=== PATIENT | male | born 1940 | race Caucasian/White ===

== ENCOUNTER 2020-04-20 22:12 | Inpatient (IN) | payer MEDICARE, SELFPAY ==
[~2020-04-20] VITALS: Ht 162.6 cm; Wt 45.8 kg
[2020-04-20 22:12] VITALS: BP 97/69
--- NOTE | 2020-04-20 22:12 | NUR ---
PT PRADIP ALS. TAKEN TO BED 3
[2020-04-20] MEDS ORDERED: NACL 0.9% 500 ML IV ONE (22:25)
--- NOTE | 2020-04-20 22:30 | NUR ---
79 Y/O MALE BIBA FROM HOME C/O ALOC - PER FIRE PT HAS BEEN IN & OUT OF HOSPITAL FOR PAST WEEK. PT ABLE TO FOLLOW SIMPLE COMMANDS. PT O2 SAT'S IN 80'S ON ROOM AIR. PT PLACED ON BIPAP. O2 98%. WILL CONTINUE TO MONITOR. PMH: AFIB, DM, HIGH CHOLESTEROL NKA
--- NOTE | 2020-04-20 23:00 | NUR ---
URINE, NOVEL AND NOE SWABS COLLECTED AND HANDED TO AGRICULTURAL INSPECTORFRACISCO.
--- NOTE | 2020-04-20 23:18 | NUR ---
Artemio english in EDM - 04/20/20 at 2318 by GALINAK ABG RESULTS PRESENTED TO ED DR AND FIO2 TITRATED TO 40% ON BIPAP 02/10 f16
--- NOTE | 2020-04-20 23:19 | NUR ---
ABG RESULTS PRESENTED TO ED DR AND FIO2 TITRATED TO 40% ON BIPAP 02/10 f16 PT PLACED ON BIPAP PER ED DR REQUEST
[2020-04-20 23:20] VITALS: BP 97/69
--- NOTE | 2020-04-20 23:20 | NUR ---
LAB AT BEDSIDE
[2020-04-20] MEDS ORDERED: AZITHROMYCIN 500 MG in DEXTROSE 5% 250 ML IV ONE (23:35)
[2020-04-20] MEDS ORDERED: DEXAMETHASONE 4 MG/ML VIAL IVP ONE (23:35)
[2020-04-20 23:37] LABS: BASOPHILS % (AUTO) 0.4 % (0.0-2.0); EOSINOPHILS % (AUTO) 0.2 % (0.0-4.0); HEMATOCRIT 38.1 % (36-52); HEMOGLOBIN 12.7 g/dL (12.0-18.0); LYMPHOCYTES # (AUTO) 0.3 K/uL (2.0-11.5); LYMPHOCYTES % (AUTO) 4.4 % (20.5-51.1); MEAN CORPUSCULAR HEMOGLOBIN 30 pg (27-31); MEAN CORPUSCULAR HGB CONC 33 g/dL (33-37); MEAN CORPUSCULAR VOLUME 91.4 fL (80-94); MONOCYTES # (AUTO) 0.4 K/uL (0.8-1.0); MONOCYTES % (AUTO) 5.4 % (1.7-9.3); NEUTROPHILS # (AUTO) 7.1 K/uL (1.8-7.7); NEUTROPHILS % (AUTO) 89.6 % (42.2-75.2); PLATELET COUNT (AUTO) 141 K/uL (140-450); RED BLOOD CELL COUNT(AUTO) 4.17 MIL/uL (4.20-6.10); RED CELL DISTRIBUTION WIDTH 16.2 % (11.6-13.7); WHITE BLOOD COUNT (AUTO) 7.9 K/uL (4.8-10.8)
[2020-04-20] MEDS ORDERED: cefTRIAXone 1,000 MG VIAL ONE (23:45)
[2020-04-20] MEDS ORDERED: AZITHROMYCIN 500 MG INJ VIAL IV ONE (23:45)
[2020-04-20 23:51] LABS: ALBUMIN 2.5 g/dL (3.4-5.0); ANION GAP 16.5 (8-16); ASPARTATE AMINOTRANSFERASE 161 U/L (15-37); CARBON DIOXIDE 23.8 mmol/L (21-32); CHLORIDE 107 mmol/L (98-107); CREATININE 2.5 mg/dL (0.6-1.3); GLUCOSE 158 mg/dL (74-106); POTASSIUM 4.3 mmol/L (3.5-5.1); SODIUM SERUM 143 mmol/L (136-145); TOTAL BILIRUBIN 0.6 mg/dL (0.0-1.0)
[2020-04-21 00:11] LABS: UREA NITROGEN, BLOOD 67 mg/dL (7-18)
[2020-04-21] MEDS ORDERED: NACL 0.9% 1,000 ML IV SCH ×2 (00:25→08:00)
[2020-04-21 00:26] LABS: CKMB RELATIVE INDEX 0.2 (0.0-2.5)
[2020-04-21 00:53] LABS: APPEARANCE,URINE CLOUDY (CLEAR); BILIRUBIN,URINE NEGATIVE (NEGATIVE); BLOOD, URINE 1+ (NEGATIVE); COLOR,URINE YELLOW (YELLOW); LEUKOCYTE ESTERASE ,URINE NEGATIVE (NEGATIVE); NITRITE, URINE NEGATIVE (NEGATIVE); PH,URINE 5.5 (5.0-9.0); UGLUCOSE NEGATIVE (NEGATIVE)
[2020-04-21 01:35] VITALS: BP 103/51
--- NOTE | 2020-04-21 01:40 | NUR ---
PER RT, PT PLACED ON NONREBREATHER 15L, PT O2 SATURATION AT 100%. WILL CONTINUE TO MONITOR.
--- NOTE | 2020-04-21 01:41 | NUR ---
W/ DR CONSENT PT REMOVED FROM BIPAP AND PLACED ON NRB WILL CONTINUE TO MONITOR PT
[2020-04-21 02:23] LABS: RBC,URINE 0-5 /HPF (0-5); WBC,URINE 0-5 /HPF (0-5)
[2020-04-21 02:24] LABS: FINE GRANULAR CASTS,URINE 0-10 /LPF (None Seen)
--- NOTE | 2020-04-21 03:45 | NUR ---
PT HAS EYES CLOSED, ON NONREBREATHER 15L, PT O2 SATURATION AT 99%. WILL CONTINUE TO MONITOR.
--- NOTE | 2020-04-21 05:20 | NUR ---
PT HAS EYES CLOSED, ON NONREBREATHER 15L, PT O2 SATURATION AT 99%. WILL CONTINUE TO MONITOR.
--- NOTE | 2020-04-21 07:21 | NUR ---
REPORT GIVEN TO FRACISCO FONG FOR CONTINUITY OF CARE
--- NOTE | 2020-04-21 07:22 | NUR ---
Report received from HETAL Camejo metal furniture polisher for continuity of care.
--- NOTE | 2020-04-21 07:56 | NUR ---
BIBA from home with c/o rigors/SOB x 3 days, decreased activity per EMS. RA O2 sat in field was 80's, bipap applied initially. NKDA, PMH a-fib, DM2, HLD. A, A, O x 2, speach difficult to understand with O2 FM, cooperative. Resp even and unlabored, O2 @ 15 l/min NON-rebreather mask NRM, O2 sat 98-100% HOB elevated, VVS x HR, panel monitor with a-fib RVR 105-125 BPM. Moving all exts weakly, IV patent #[id number] left AC, saline locked. Awaiting TELE bed/room, will continue to monitor.
[2020-04-21] MEDS ORDERED: DEXTROSE 50% 50 ML SYR IVP PRN (08:00)
[2020-04-21] MEDS ORDERED: ALBUTEROL HFA MDI 90 MCG/ACTUATION 8 GM INH PRN (08:00)
[2020-04-21] MEDS ORDERED: DOCUSATE SODIUM 100 MG GELCAP PO PRN (08:00)
[2020-04-21] MEDS ORDERED: ACETAMINOPHEN 325 MG TAB PO PRN (08:00)
[2020-04-21] MEDS ORDERED: POTASSIUM CHLORIDE 10 MEQ TABER PO PRN (08:00)
[2020-04-21] MEDS ORDERED: HYDROcodone/APAP 7.5/325 MG 1 TAB PO PRN (08:00)
[2020-04-21] MEDS ORDERED: ONDANSETRON 4 MG/2 ML VIAL IM/IVP PRN (08:00)
[2020-04-21] MEDS: ZINC SULF 220 MG CAP PO SCH (10:48)
[2020-04-21] MEDS: AZITHROMYCIN 250 MG TAB PO SCH (10:50)
[2020-04-21] MEDS: ASCORBIC ACID 500 MG TAB PO SCH (10:52)
--- NOTE | 2020-04-21 11:28 | NUR ---
Brought patient regular diet tray for lunch, stated he wasn't hungry and did not want it. Tolerating water well
--- NOTE | 2020-04-21 12:07 | NUR ---
SOCIAL WORK NOTE: JUSTIN WAS UNABLE TO MEET PATIENT AT BEDSIDE DUE TO MEDICAL CONDITION. JUSTIN WAS UNABLE TO LEAVE VM DUE TO NO CONTACTS AVAILABLE. JUSTIN WILL FOLLOW UP. Addendum: 04/24/20 at 1403 by Aureliano Alvarez JUSTIN LEFT ADDITIONAL VM TO COMPLETE ASSESSMENT.
[2020-04-21 12:22] LABS: CHOL/HDL RATIO 4.5 (1-4.5); FREE T4 (FREE THYROXINE) 1.23 ng/dL (0.76-1.46); MAGNESIUM 2.2 mg/dL (1.8-2.4); PHOSPHORUS 3.2 mg/dL (2.5-4.9); THYROID STIMULATING HORMONE 0.83 uIU/mL (0.34-3.74)
[2020-04-21] MEDS: BLOOD GLUCOSE MONITORING 1 DEV DEV FS SCH ×3 (13:01→21:23)
--- NOTE | 2020-04-21 16:03 | NUR ---
Patient taking oxygen off, placed facem mask back on. O2 sat 88% w/o O2 Patient with O2 on, O2 sat 95%, reoriented and explained necessity of oxygen
[2020-04-21] MEDS: INSULIN LISPRO SLIDING SCALE 100 UNITS/ML VIAL SUBQ PRN (18:13)
--- NOTE | 2020-04-21 18:15 | NUR ---
Patient keeps taking O2 face mask off, O2 sat without O2 is 88% Reminded patint to wear mask, states he's NOT SOB. Patient given water to moisten his mouth
--- NOTE | 2020-04-21 19:37 | NUR ---
Detailed report given to HETAL Martínez security shift manager. Questions answered, orders and meds reviewed.
--- NOTE | 2020-04-21 19:37 | NUR ---
report received from jhonny hoffman. transfer of care at this time.
--- NOTE | 2020-04-21 21:00 | NUR ---
pt is awake and in stable condition. bed locked in lowest position, side rails x2. pt on school bus monitor and pulse ox.
[2020-04-21] MEDS ORDERED: cefTRIAXone 1,000 MG VIAL ONE (21:02)
--- NOTE | 2020-04-21 22:20 | NUR ---
bed sheets and pt's diaper changed, only urine noted. pt given a new warm blanket and provided with water per request. all pt's needs are met at this time. bed locked in lowest position, side rails x2. pt on hall monitor and pulse ox.
--- NOTE | 2020-04-22 | NUR ---
PT IN STABLE CONDITION. EQUAL RISE AND FALL OF CHEST WALL. ALL PT'S NEEDS MET AT THIS TIME. BED LOCKED IN LOWEST POSITION, SIDE RAILS X2. PT ON SANDBLASTER PAINT SPRAYER AND PULSE OX.
--- NOTE | 2020-04-22 02:15 | NUR ---
PT IS IN STABLE CONDITION. DR. LUNA MADE AWARE THAT PT'S HR IS 140 DUE TO AFIB, WAITING FOR RESPONSE. BED LOCKED IN LOWEST POSITION, SIDE RAILS X2. PT CONTINUES TO REMOVE NONREBREATHER, INSTRUCTED TO LEAVE IT ON.
--- NOTE | 2020-04-22 02:44 | NUR ---
CALLED , NO ANSWER. WAITING FOR RESPONSE.
--- NOTE | 2020-04-22 03:45 | NUR ---
PT IS IN STABLE POSITION, PT GAVE A THUMBS UP WHEN ASKED HOW HE WAS FEELING. NONREBREATHER PLACED BACK ON, PT REMOVES CONSTANTLY. EQUAL RISE AND FALL OF CHEST WALL. SIDE RAILS X2, BED LOCKED IN LOWEST POSITION. ALL PT'S NEEDS MET AT THIS TIME.
--- NOTE | 2020-04-22 04:31 | NUR ---
CALLED , NO ANSWER.
--- NOTE | 2020-04-22 04:35 | NUR ---
CALLED , NO ANSWER. PT CONTINUES IN STABLE CONDITION.
--- NOTE | 2020-04-22 05:11 | NUR ---
CALLED DR. LUNA, NO ANSWER.
--- NOTE | 2020-04-22 05:16 | NUR ---
RECEIVED CALL FROM DR. DAVENPORT, REPORTED AFIB AT 140 AND O2 SAT AT 88 ON 15L NONREBREATHER, PT IN STABLE CONDITION. ORDERED DILTIAZEM 60 MG P.O DAILY X1DAY AND TO PUT IN A CONSULT WITH PAPER MILL SUPERVISOR. ORDERS CARRIED OUT.
[2020-04-22] MEDS ORDERED: DILTIAZEM 60 MG TAB PO SCH (05:25)
[2020-04-22] MEDS: METOPROLOL 25 MG TAB PO SCH ×2 (06:16→20:52)
--- NOTE | 2020-04-22 06:23 | NUR ---
PT IS AWAKE AND ALERT, CONTINUES TO REMOVE NONREBREATHER. PLACED BACK ON. PT IS IN STABLE CONDITION, SIDE RAILS X2, BED LOCKED IN LOWEST POSITION. ALL PT'S NEEDS MET AT THIS TIME.
--- NOTE | 2020-04-22 07:27 | NUR ---
report given to jhonny lockhart. transfer of care at this time.
[2020-04-22 07:46] LABS: BASOPHILS % (AUTO) 0.1 % (0.0-2.0); HEMATOCRIT 37.4 % (36-52); HEMOGLOBIN 12.8 g/dL (12.0-18.0); LYMPHOCYTES # (AUTO) 0.2 K/uL (2.0-11.5); LYMPHOCYTES % (AUTO) 1.6 % (20.5-51.1); MEAN CORPUSCULAR HEMOGLOBIN 33 pg (27-31); MEAN CORPUSCULAR HGB CONC 34 g/dL (33-37); MEAN CORPUSCULAR VOLUME 95.2 fL (80-94); MONOCYTES # (AUTO) 0.5 K/uL (0.8-1.0); MONOCYTES % (AUTO) 4.6 % (1.7-9.3); NEUTROPHILS # (AUTO) 10.5 K/uL (1.8-7.7); NEUTROPHILS % (AUTO) 93.7 % (42.2-75.2); PLATELET COUNT (AUTO) 172 K/uL (140-450); RED BLOOD CELL COUNT(AUTO) 3.94 MIL/uL (4.20-6.10); WHITE BLOOD COUNT (AUTO) 11.2 K/uL (4.8-10.8)
--- NOTE | 2020-04-22 07:48 | NUR ---
PT ALERT AND AWAKE, BREATHING EVEN AND UNLABORED ON NRB @15L, SPO2 93%. PT HAD MASK OFF SATURATING 85%, UNDERSTANDS TO KEEP MASK ON
--- NOTE | 2020-04-22 08:01 | NUR ---
DR LUNA MADE AWARE PT HR 144, BP 138/63 STILL AFTER LOPRESSOR GIVEN AT 0615
[2020-04-22] MEDS: BLOOD GLUCOSE MONITORING 1 DEV DEV FS SCH ×4 (08:09→22:49)
[2020-04-22 08:11] LABS: T4 (THYROXINE) 5.7 ug/dL (4.5-12.0)
--- NOTE | 2020-04-22 08:14 | NUR ---
PATIENT HAS BEEN SCREENED AND CATEGORIZED HIGH NUTRITION RISK. PATIENT WILL BE SEEN WITHIN 1-2 DAYS OF ADMISSION. 04/21/20 - 04/23/20 TAMMI DENIS MBA, RD
[2020-04-22] MEDS ORDERED: METOPROLOL 5 MG/5 ML VIAL IV SCH ×3 (09:00→11:30)
[2020-04-22] MEDS ORDERED: CRUSHER, PILL MC ONE (09:02)
[2020-04-22] MEDS: ASCORBIC ACID 500 MG TAB PO SCH (09:33)
[2020-04-22] MEDS: AZITHROMYCIN 250 MG TAB PO SCH (09:33)
[2020-04-22] MEDS: ZINC SULF 220 MG CAP PO SCH (09:34)
[2020-04-22 09:42] LABS: ALBUMIN 2.5 g/dL (3.4-5.0); ANION GAP 20.8 (8-16); ASPARTATE AMINOTRANSFERASE 86 U/L (15-37); CARBON DIOXIDE 19.8 mmol/L (21-32); CHLORIDE 109 mmol/L (98-107); CREATININE 2.2 mg/dL (0.6-1.3); GLUCOSE 157 mg/dL (74-106); MAGNESIUM 2.4 mg/dL (1.8-2.4); PHOSPHORUS 4.1 mg/dL (2.5-4.9); POTASSIUM 4.6 mmol/L (3.5-5.1); SODIUM SERUM 145 mmol/L (136-145); TOTAL BILIRUBIN 0.5 mg/dL (0.0-1.0)
--- NOTE | 2020-04-22 09:46 | NUR ---
PT HR 145 AFTER MEDICATION LOPRESSOR, DR LUNA MADE AWARE
[2020-04-22 10:40] LABS: UREA NITROGEN, BLOOD 80 mg/dL (7-18)
[2020-04-22 10:43] LABS: LACTATE DEHYDROGENASE 647 U/L (85-227)
--- NOTE | 2020-04-22 10:48 | NUR ---
PT HR 146 AFTER 2ND DOSE OF MEDICATION LOPRESSOR 2.5MG, DR LUNA MADE AWARE
--- NOTE | 2020-04-22 12:21 | NUR ---
TALKED TO DARIAN FROM NUCLEAR MED, STATE THEY WILL FRENCH POLISHER PATIENT AROUND 4PM
--- NOTE | 2020-04-22 13:28 | NUR ---
SPOKE WITH SOSA, SON, PROVIDED WITH UPDATES. ALL QUESTIONS ANSWERED.
[2020-04-22] MEDS ORDERED: NACL 0.9% 500 ML IV SCH (14:10)
--- NOTE | 2020-04-22 14:15 | NUR ---
1 FLUID FLUID BOLUS STARTED PER DR LUNA VERBAL ORDER
--- NOTE | 2020-04-22 14:19 | NUR ---
ATTEMPTED TO CALL BLOOD BANK FOR 1ST TIME REGARDING ORDERED BLOOD, WILL WAIT FOR CALL BACK.
--- NOTE | 2020-04-22 15:24 | NUR ---
HR REMAINS 146, BP 154/104 AFTER 1L BOLUS, DR LUNA MADE AWARE
--- NOTE | 2020-04-22 15:25 | NUR ---
BLOOD BANK STATES THEY HAVE TO THAW [facility]FP
--- NOTE | 2020-04-22 15:48 | NUR ---
DC PLANNIN YRS OLD MALE PATIENT WAS ADMITTED FROM HOME WITH A DX OF ACUTE RESP FAILURE SECONDARY TO BILATERAL PNA. PT HAS A HX OF A-FIB, DM AND HLD. CXR SHOWED PNEUMONIA ,CONSOLIDATION. RAPID COVID TEST POSITIVE PCR IS PENDING. STARTED COVID PROTOCOL REMDESEVIR , DECADRON AND IV ABX ROCEPHIN AND AZITHROMYCIN . CONSULTED WITH PULMO AND ID. PT IS CONFUSED UNABLE TO FOLLOW CONVERSATION. CALLED [facility] SPOKE WITH MARIAN FARRIS ,PROVIDED PT HOME NUMBER AND FAMILY MEMBER INFORMATION . UPDATED PT'S FACE SHEET AND NOTIFIED DR LUNA. PER MARIAN FROM [facility] THEY ARE FULL IN ALL [facility] AND NOT TRANSFERRING ANY OF THEIR PATIENT FOR 2 WEEKS AND WILL APPROVE 2 DAYS AT A TIME. CM TO FOLLOW Addendum: 04/25/20 at 1544 by Soledad De Santiago CM PER DR. VILLANUEVA, WILL TRANSITIONED IV CARDIZEM TO PO AND DOWNGRADE TO TELE. HE ALSO STATED PATIENT WILL BE NEEDING HOME O2. ORDER TRANSCRIBED AND FAXED TO [facility]. Addendum: 04/27/20 at 1058 by Mindy Peters RN DC PLANNING: FAXED THE CLINICALS TO [facility] [phone] AND RECEIVED A CONFIRMATION. CM TO FOLLOW Addendum: 04/28/20 at 1229 by Soledad De Santiago CM STILL ON O2 AT 2LPM/NC, O2 SAT 93%. ON DECADRON. SEEN BY NEPHRO - NA REMAINS ELEVATED, CHANGE IVF TO D5W. CR TRENDING DOWN. PER MANUEL - CONTINUE SUPPLEMENTAL O2, WEAN OFF, RECOMMEND GENTLE IV HYDRATION. Addendum: 04/28/20 at 1253 by Soledad De Santiago CM REACHED OUT TO [facility], ABLE TO SPEAK TO YAYO. SHE STATED THEIR IS NO ASSIGNED CM ON THIS PATIENT DUE TO THEY ARE PRIORITIZING DISCHARGES. SHE STATED THAT STAY HAVE BEEN AUTHORIZED UNTIL DC. SHE ALSO CONFIRMED THAT THEY RECEIVED THE ORDER FOR HOME O2. SHE STATED THEY DO NOT ARRANGE O2 UNTIL THEY HAVE THE DC ORDER. INFORMED HER THAT THE PATIENT'S HR WENT UP TO 150'S. SHE STATED SHE WILL REACH OUT TO THEIR DC TEAM FOR THE HOME O2. PROVIDED HER OF MY DIRECT NUMBER TO FOLLOW UP.
[2020-04-22] MEDS ORDERED: DIGOXIN 0.25 MG/ML AMP IV SCH (16:00)
--- NOTE | 2020-04-22 16:53 | NUR ---
PER NUCLEAR MEDICINE COULD NOT TAKE PATIENT, WOULD HAVE TO OUTSOURCE SCAN. STATES WILL GIVE ETA FOR WHEN THEY WILL PERFORM FOR PT. DR LUNA AWARE.
--- NOTE | 2020-04-22 17:01 | NUR ---
DR LUNA MADE AWARE PT HR 145, BP 154/104 AFTER 0.5MG DIGOXIN GIVEN
--- NOTE | 2020-04-22 17:25 | NUR ---
VERBAL CONSENT GIVEN BY DR LUNA FOR TRANSFUSION OF COVID 19 CONVALESCENT PLASMA
--- NOTE | 2020-04-22 17:50 | NUR ---
TRANSFUSION OF COVID PLASMA START AT THIS TIME
--- NOTE | 2020-04-22 18:35 | NUR ---
REPORT GIVEN TO AMOL FONG AT THIS TIME
--- NOTE | 2020-04-22 19:00 | NUR ---
TRANSFUSION TO BE CONTINUED IN TELE UNIT, PRIMARY NURSE AWARE
--- NOTE | 2020-04-22 19:00 | NUR ---
Patient will be admitted to care of Dr Chamberlain. Admited to tele. Will go to room 116. Belongings list completed. Report to Mindy FONG.
--- NOTE | 2020-04-22 19:15 | NUR ---
RECEIVED REPORT FROM AMOL FONG. PT IS AAOX1 SELF. RESPIRATIONS ARE EQUAL AND LABORED ON 15L NRB. LUNG SOUNDS ARE DIMINISHED AT BASE. RR 24 SAT 90%. PER REPORT PLASMA TRANSFUSING. WALKED IN PT PULLED IV OUT VERY ALTERED. WILL ATTEMPT TO REINSERT ANOTHER. SKIN IS INTACT. SACRAL REDNESS. PT IS FROM HOME. C/C SOB. DX COVID ON DROPLET ISOLATION. HX A-FIB, HLD, DM. PT REMAINS UNCONTR A-FIB HR 140S PER REPORT IS AWARE WILL CONTINUE ON METOPROL. POC DISCUSSED WITH PT. SAFETY MEASURE ARE IN PLACE.
--- NOTE | 2020-04-22 19:20 | NUR ---
NEW IV ON LAC 22G STARTED ON FIRST ATTEMPT PT TOLERATED WELL. PLASMA NOW RESUME.
--- NOTE | 2020-04-22 19:40 | NUR ---
PLASMA COMPLETE NO S/S OF ADVERSE REACTION NOTED. WILL CONTINUE TO MONITOR FREQUENTLY. PT KEEPS REMOVING NRB DE SAT TO HIGH 70S ON RA. REORIENT PT BUT KEEPS ATTEMPTING TO REMOVE LINES. WILL OBTAIN ORDER FOR RESTRAINTS.
[2020-04-22 20:00] VITALS: BP 176/97
--- NOTE | 2020-04-22 21:13 | NUR ---
B/P ELEVATED 176/94 HR 141 KTAHY MEDICATION GIVEN. KATHY LOPRESSOR ADMINISTERED FOR B/P. IS AWARE PT IS A-FLUTTER HR BEEN 140S SINCE ER. PT WAS CLEANED AND REPOSITION. SAFETY MEASURES ARE IN PLACE. CALL LIGHT IS WITHIN REACH. Addendum: 04/23/20 at 0109 by Caridad Yoder RN ATTEMPT TO CALL JESUS AND SON SOSA UNABLE TO GET IN CONTACT WILL ATTEMPT AGAIN IN AM.
--- NOTE | 2020-04-22 22:40 | NUR ---
ROUNDS MADE. FOUND PT OFF NRB. PLACED NRB ON AGAIN AND SECURED RESTRAINTS. REORIENTED PT TO HOSPITAL AND STAFF. SAFETY MEASURES ARE IN PLACE.
[2020-04-23] VITALS (9 sets, daily range): BP systolic 102–149; BP diastolic 57–107
--- NOTE | 2020-04-23 | NUR ---
VITAL SIGNS ARE STABLE. PT REMAINS A-FLUTTER HR 146. PT DENIES ANY CHEST PAIN OR DISCOMFORT. SAFETY MEASURES ARE IN PLACE. WILL CONTINUE TO MONITOR.
--- NOTE | 2020-04-23 02:20 | NUR ---
MADE ROUNDS. PT IS SLEEPING COMFORTABLY IN BED WITH EYES CLOSED. CHEST RISE AND FALL NOTED. ALL SAFETY MEASURES ARE IN PLACE. WILL CONTINUE TO MONITOR.
[2020-04-23] MEDS ORDERED: DIGOXIN 0.125 MG TAB ONE (06:19)
[2020-04-23] MEDS: DIGOXIN 0.125 MG TAB PO SCH (06:21)
--- NOTE | 2020-04-23 06:21 | NUR ---
ADMINISTERED DIGOXIN EARLY PER MD FOR 149/107 HR 141. BG 109 WILL CONTINUE TO MONITOR.
[2020-04-23] MEDS: BLOOD GLUCOSE MONITORING 1 DEV DEV FS SCH ×4 (06:26→20:46)
--- NOTE | 2020-04-23 07:05 | NUR ---
REC'D REPORT FROM DISTRICT SCOUT EXECUTIVE NURSE. PT STABLE. ON 15L NRB. BED LOWEST POSITION. CALL LIGHT WITHIN REACH.
--- NOTE | 2020-04-23 07:27 | NUR ---
GAVE BEDSIDE REPORT TO DAY RN. PT ENDORSED IN STABLE CONDITION.
[2020-04-23] MEDS: METOPROLOL 25 MG TAB PO SCH ×2 (08:54→21:00)
[2020-04-23] MEDS: ASCORBIC ACID 500 MG TAB PO SCH (08:54)
[2020-04-23] MEDS: ZINC SULF 220 MG CAP PO SCH (08:54)
[2020-04-23 09:04] LABS: ANION GAP 15.9 (8-16); CARBON DIOXIDE 23.6 mmol/L (21-32); CHLORIDE 112 mmol/L (98-107); CREATININE 1.5 mg/dL (0.6-1.3); GLUCOSE 121 mg/dL (74-106); POTASSIUM 4.5 mmol/L (3.5-5.1); SODIUM SERUM 147 mmol/L (136-145); UREA NITROGEN, BLOOD 57 mg/dL (7-18)
[2020-04-23 09:24] LABS: MAGNESIUM 2.8 mg/dL (1.8-2.4); PHOSPHORUS 3.3 mg/dL (2.5-4.9)
--- NOTE | 2020-04-23 09:29 | NUR ---
ATTEMPTED TO GIVE MEDICATIONS PO, PT HAD LARGE BOLUS OF UNDIGESTED FOOD IN MOUTH, UNABLE TO SWALLOW THE PILLS OR WATER. SUCTIONED TO REMOVED FOOD FROM MOUTH. REC'D CALL FROM AIRCRAFT PAINTER WHILE IN ROOM INFORMED HER OF SITUATION AND REQUESTED TO ORDER A SWALLOW STUDY.
--- NOTE | 2020-04-23 09:55 | NUR ---
PER DR. FISHER, ADMINISTER 10MG OF DILTIAZEM IV ONE TIME FOR SVT. ENTERED ORDER AND SYSTEM, PER ADMINISTER AURA, MEDICATION WAS OVERRIDEN IN SYSTEM TO ADMINISTER.
[2020-04-23] MEDS ORDERED: DILTIAZEM 25 MG/5 ML VIAL IVP ONE ×2 (10:10→10:16)
[2020-04-23] MEDS ORDERED: DILTIAZEM 25 MG/5 ML VIAL IVP SCH ×2 (10:30→15:00)
--- NOTE | 2020-04-23 10:30 | NUR ---
SPOKE TO GUEST SERVICE HOST RECOMMENDED TO ORDER SWALLOW EVALUATION
[2020-04-23 11:36] LABS: BASOPHILS % (AUTO) 0.4 % (0.0-2.0); EOSINOPHILS % (AUTO) 0.1 % (0.0-4.0); HEMATOCRIT 41.7 % (36-52); HEMOGLOBIN 14.1 g/dL (12.0-18.0); LYMPHOCYTES # (AUTO) 0.3 K/uL (2.0-11.5); LYMPHOCYTES % (AUTO) 2.5 % (20.5-51.1); MEAN CORPUSCULAR HEMOGLOBIN 32 pg (27-31); MEAN CORPUSCULAR HGB CONC 34 g/dL (33-37); MONOCYTES # (AUTO) 0.7 K/uL (0.8-1.0); MONOCYTES % (AUTO) 5.9 % (1.7-9.3); NEUTROPHILS # (AUTO) 10.3 K/uL (1.8-7.7); NEUTROPHILS % (AUTO) 91.1 % (42.2-75.2); PLATELET COUNT (AUTO) 208 K/uL (140-450); RED BLOOD CELL COUNT(AUTO) 4.35 MIL/uL (4.20-6.10); RED CELL DISTRIBUTION WIDTH 16.6 % (11.6-13.7); WHITE BLOOD COUNT (AUTO) 11.3 K/uL (4.8-10.8)
[2020-04-23] MEDS: INSULIN LISPRO SLIDING SCALE 100 UNITS/ML VIAL SUBQ PRN ×2 (13:15→13:20)
--- NOTE | 2020-04-23 13:41 | NUR ---
04/23/20 RD INITIAL ASSESSMENT COMPLETED PLEASE REFER TO NUTRITION ASSESSMENT UNDER CARE ACTIVITY FOR ESTIMATED NUTRITIONAL NEEDS. 1. RECOMMEND NPO 2. RECOMMEND A SWALLOW EVALUATION 3. IF PT PASSES SWALLOW EVAL, CONSIDER GLUCERNA TID 4. IF PT FAILS SWALLOW EVAL, CONSIDER TUBE FEEDING WITH GLUCERNA 1.2 @ 60 ML/HR . START AT 10 ML/HR AND INCREASE BY 20 ML/HR Q4H. -USING GRAVITY TUBE FEEDING THIS WILL BE 14 DROPS PER MINUTE. -THIS WILL PROVIDE 1728 KCAL AND 86 GM OF PROTEIN. 5. RECOMMEND FREE WATER FLUSH OF [address] TO FOLLOW-UP 2-3 DAYS,HIGH RISK REBEL BARNETT RD
--- NOTE | 2020-04-23 14:30 | NUR ---
PT CONTINUES WITH HR ABOVE 15. TEXTED DR. FISHER TO INFORM
--- NOTE | 2020-04-23 14:48 | NUR ---
ADMINISTERED 10MG DILTIAZEM IVP PER DR. FISHER ORDER FOR HR ABOVE 150, PT TOLERATED PROCEDURE WELL
--- NOTE | 2020-04-23 16:00 | NUR ---
PT RESTING IN BED, LOWEST POSITION
--- NOTE | 2020-04-23 18:00 | NUR ---
SENT MESSAGE TO DR. FISHER NOTIFYING HIM PT CONTINUES TO HAVE HR ABOVE 150 DESPITE PHARMACOLOGICAL INTERVENTION.
--- NOTE | 2020-04-23 19:30 | NUR ---
ENDORSED PT TO NIGHT NURSE, PT STABLE WITH HR ABOVE 150
--- NOTE | 2020-04-23 19:31 | NUR ---
RECEIVED REPORT FROM ESTRELLITA FONG. PT IS AAOX1 SELF. RESPIRATIONS ARE EQUAL AND LABORED ON RA. LUNG SOUNDS ARE DIMINISHED AT BASE. RR 21 SAT 93%. PT ON DROPLET ISOLATION FOR COVID +. PT RECEIVED ONE UNIT ON PLASMA ON 04/22. IV ON RAC 22G SL. SKIN IS INTACT. SACRAL REDNESS WITH OPTIFOAM IN PLACE. PT IS FROM HOME. C/C SOB. HX A-FIB, HLD, DM. PT REMAINS UNCONTR A-FLUTTER HR 140-150S PER REPORT . PT RECEIVED CARDIZEM 10MG IVP X2 HAS NOT CONVERTED WAITING FOR CALL BACK FROM . POC DISCUSSED WITH PT PT UNABLE TO COMPREHEND. SAFETY MEASURE ARE IN PLACE. Addendum: 04/23/20 at 2126 by Caridad Yoder RN PT ON JAMES SOFT WRIST RESTRAINTS D/T REMOVING LINES. NO S/S OF SKIN BREAK DOWN.
--- NOTE | 2020-04-23 19:35 | NUR ---
DR FISHER NEW ORDER TO TX TO ICU TO START CARDIZEM DRIP. NEW ORDERS INPUT WILL CALL SUPERVISOR WRAPPING ROOM AND ICU TO ARRANGE TRANSFER.
--- NOTE | 2020-04-23 20:53 | NUR ---
PT TRANSFERRED TO ROOM 127A. PT TOLERATED WELL NO S/S OF DISTRESS. GAVE BEDSIDE REPORT TO CHARGE JEANETTE. PT ENDORSED IN STABLE CONDITION. PT REMAINS A-FLUTTER HR 140-150 BPM. CALL LIGHT IS WITHIN REACH.
--- NOTE | 2020-04-23 21:07 | NUR ---
PATIENT UNABLE TO SWALLOW HELD LOPRESSOR. ADMINISTERED SUBQ HEPARIN. MED EDUCATION GIVEN. ALL NEEDS MET. CALL LIGHT IS WITHIN REACH.
--- NOTE | 2020-04-23 21:37 | NUR ---
GAVE BEDSIDE REPORT TO JEANETTE FONG. PT ENDORSED IN STABLE CONDITION.
--- NOTE | 2020-04-23 22:15 | NUR ---
RECEIVED PT FOR CONTINUITY OF CARE. PT LAYING IN BED COMFORTABLY. PT REMAINS AAOX1. RESPIRATIONS ARE EQUAL AND UNLABORED ON ROOM AIR. LUNG SOUNDS ARE CLEAR. IV ON RAC 22G. POC DISCUSSED WITH PT. PT UNABLE TO VERBALIZE UNDERSTANDING. SAFETY MEASURES ARE IN PLACE. CALL LIGHT IS WITHIN REACH. WILL CONTINUE TO MONITOR.
[2020-04-23] MEDS ORDERED: DILTIAZEM 125 MG/25 ML VIAL IV ONE (22:47)
[2020-04-23] MEDS: DILTIAZEM 125 MG in DEXTROSE 5% 100 ML IV SCH (23:13)
--- NOTE | 2020-04-23 23:13 | NUR ---
CARDIZEM DRIP STARTED AT 10MG/H VS: 135/90 155 BPM RR 20 SAT 90% RA. WILL MONITOR HEART RHYTHM ON MONITOR. PT DENIES ANY DISCOMFORT.
[2020-04-24] VITALS (43 sets, daily range): BP systolic 112–138; BP diastolic 62–92
--- NOTE | 2020-04-24 00:17 | NUR ---
VS: 138/81 156BPM RR 20 SAT 96% RA CARDIZEM DRIP INCREASED PER PROTOCOL NEW RATE 15MG/H. WILL CONTINUE TO MONITOR.
--- NOTE | 2020-04-24 02:20 | NUR ---
PT RESTING COMFORTABLY IN BED WITH EYES CLOSED. REMAINS UNCONT A-FIB. 156 BPM 121/76 91% RR20. CONTINUE TO MONITOR.
--- NOTE | 2020-04-24 04:00 | NUR ---
VITAL SIGNS ARE WITHIN NORMAL LIMITS. PT REMAINS ON CARDIZEM DRIP PT UNCON A-FIB 150BPM WILL CONTINUE TO MONITOR.
[2020-04-24] MEDS ORDERED: BUPR-160 PO (05:11)
[2020-04-24] MEDS ORDERED: GABA100C PO (05:11)
[2020-04-24] MEDS ORDERED: DILT240C80 PO (05:11)
[2020-04-24] MEDS ORDERED: ATOR80TA27 PO (05:11)
[2020-04-24] MEDS ORDERED: FURO-570 PO (05:11)
[2020-04-24] MEDS ORDERED: BISO5TAB30 PO (05:11)
[2020-04-24] MEDS ORDERED: DABI75CA PO (05:11)
[2020-04-24] MEDS ORDERED: OMEP20TC22 PO (05:11)
[2020-04-24] MEDS ORDERED: METO25TE2 PO (05:11)
[2020-04-24] MEDS ORDERED: DILT180C80 PO (05:11)
[2020-04-24] MEDS ORDERED: LINA5TAB PO (05:11)
[2020-04-24] MEDS ORDERED: DILTIAZEM 125 MG/25 ML VIAL IV ONE (06:02)
[2020-04-24] MEDS: BLOOD GLUCOSE MONITORING 1 DEV DEV FS SCH ×4 (06:16→21:00)
--- NOTE | 2020-04-24 06:17 | NUR ---
BS 155 HELD INSULIN D/T NPO. WILL CONTINUE TO MONITOR.
[2020-04-24] MEDS: DILTIAZEM 125 MG in DEXTROSE 5% 100 ML IV SCH ×2 (06:22→18:03)
--- NOTE | 2020-04-24 08:00 | NUR ---
PTS HR IN 150s, MD AWARE. CURRENTLY BP 129/81, HR 157, O2 92%. WILL CONT. TO MONITOR CLOSELY.
--- NOTE | 2020-04-24 08:00 | NUR ---
RECEIVED REPORT FROM NIGHTSHIFT RN. PT IS A&O X1, CAN FOLLOW SIMPLE COMMANDS. PT IS A-FIB RVR. PT HAS PERIPHERAL IV RT AC 20g, RUNNING CARDIZEM DRIP @ 15MG/HR. PT IS NPO EXCEPT MEDS AT THIS TIME, AWAITING A SWALLOW EVAL. PT HAS BILATERAL WRIST RESTRAINTS APPLIED, SKIN INTACT UNDER RESTRAINTS. PT HAS INCONTINENT DERMATITIS TO SACRAL AREA. SAFETY MEASURES IN PLACE, WILL CONTINUE TO MONITOR.
[2020-04-24 09:20] LABS: BASOPHILS % (AUTO) 0.4 % (0.0-2.0); EOSINOPHILS % (AUTO) 0.4 % (0.0-4.0); HEMATOCRIT 44.6 % (36-52); HEMOGLOBIN 15.6 g/dL (12.0-18.0); LYMPHOCYTES # (AUTO) 0.3 K/uL (2.0-11.5); LYMPHOCYTES % (AUTO) 2.9 % (20.5-51.1); MEAN CORPUSCULAR HEMOGLOBIN 34 pg (27-31); MEAN CORPUSCULAR HGB CONC 35 g/dL (33-37); MONOCYTES # (AUTO) 0.5 K/uL (0.8-1.0); MONOCYTES % (AUTO) 5.9 % (1.7-9.3); NEUTROPHILS % (AUTO) 90.4 % (42.2-75.2); PLATELET COUNT (AUTO) 190 K/uL (140-450); RED BLOOD CELL COUNT(AUTO) 4.55 MIL/uL (4.20-6.10); RED CELL DISTRIBUTION WIDTH 16.5 % (11.6-13.7); WHITE BLOOD COUNT (AUTO) 8.8 K/uL (4.8-10.8)
[2020-04-24] MEDS: DIGOXIN 0.125 MG TAB PO SCH (09:21)
[2020-04-24] MEDS: METOPROLOL 25 MG TAB PO SCH ×2 (09:21→21:02)
[2020-04-24] MEDS: ASCORBIC ACID 500 MG TAB PO SCH (09:22)
[2020-04-24] MEDS: ZINC SULF 220 MG CAP PO SCH (09:22)
[2020-04-24 09:33] LABS: ANION GAP 16.8 (8-16); CARBON DIOXIDE 20.7 mmol/L (21-32); CHLORIDE 115 mmol/L (98-107); CREATININE 1.4 mg/dL (0.6-1.3); GLUCOSE 171 mg/dL (74-106); POTASSIUM 4.5 mmol/L (3.5-5.1); SODIUM SERUM 148 mmol/L (136-145); UREA NITROGEN, BLOOD 55 mg/dL (7-18)
[2020-04-24] MEDS ORDERED: CRUSHER, PILL MC ONE (09:38)
--- NOTE | 2020-04-24 10:00 | NUR ---
PTS CURRENT HR IS 108, WILL CONT. TO ASSESS
[2020-04-24 11:08] LABS: PHOSPHORUS 3.8 mg/dL (2.5-4.9)
[2020-04-24] MEDS: INSULIN LISPRO SLIDING SCALE 100 UNITS/ML VIAL SUBQ PRN ×2 (11:30→16:30)
--- NOTE | 2020-04-24 13:10 | NUR ---
PTS SON SOSA CALLED, UPDATED ON PTS CONDITION
--- NOTE | 2020-04-24 16:00 | NUR ---
PTS HR IS TRENDING IN 90s TO 100s. WILL CONT TO MONITOR. Addendum: 04/24/20 at 2121 by Amanda Stiles RN RN PTS HR IS 131 WITH CONTROLLED A-FIB PER EKG.
--- NOTE | 2020-04-24 16:02 | NUR ---
ST AT BEDSIDE
--- NOTE | 2020-04-24 16:03 | NUR ---
*ST: Bedside Swallow Evaluation* Pt is 79 yo M PRADIP from home 04/20/2020 c/o rigors, SOB and hypoxia. Per Fire [employer], Pt has been in-and-out of the hospital for past week. Pt (+) rapid COVID-19 Ag test 04/20 but (-) PCR 04/20. Per notes, Pt was placed on BiPAP in ER then weaned to 15L 100% NRB mask but Pt kept removing his O2 mask. Per EMR note 04/23, RN found large bolus of undigested food in Pts mouth; therefore, swallow evaluation was ordered. Later that day, Pt transferred to ICU 2/2 HR in 150s and started on Cardizem drip. PMHx Afib, DM, HLD. CXR 04/20 - bilat patchy consolidations. NM Pulmonary VQ Scan 04/22 - limited study w/o significant perfusion defects suggests very low probability of pulmonary embolism. Cleared with RNAmanda, for BDSE. Per RN, Pts son reported Pt had difficulty swallowing medications. RN also reports Pt has moments of not following commands. Pt seen bedside, on +COVID-19 airborne isolation precautions, on 2L O2 nc but nc often falling from Pts nares 2/2 pts restlessness. Pt on BSWR and intermittently commenting on people or events happening that was not concrete (?suspect hallucinations or delirium). Frequent redirection to task was done Pt generally fair attention to task. Oral care provided with defensiveness to swab. ~2oz apple sauce and ~3oz thin apple juice given. Pt verbalized preference whenever FIELD INTERVIEWER presented the two items in front of Pt by pointing and naming the item preferred (i.e., "Apple sauce," or "juice"). Pt engaged in single straw sips thin, tsp stripping of >90% of bolus, no anterior spillage, no residue, no overt coughing nor throat clearing. Tsp presentations of MS canned pears given x2 with pt stripping boli from tsp, sucking on bolus, but either expelling bolus or using his hand to take bolus out of mouth. When asked if Pt liked the pears, Pt replied in clear vocal quality, "I like it! But I need to pee." Further POs such as apple sauce and apple juice deferred as Pt would shake his head and say, "Not right now." POC and recommendations d/w pt and pts RN. P: Rec Puree/Thin Liquids by straw ok, feed-assist Pt appears to benefit from redirection to task with verbal and visual cuing Follow safe swallow strategies, oral care, aspiration precautions Nsg to monitor and notify FIELD INTERVIEWER of changes in status -Teri Virgen MA, [facility]-FIELD INTERVIEWER Addendum: 04/24/20 at [address] Amended: Links added.
[2020-04-24] MEDS ORDERED: METOPROLOL 5 MG/5 ML VIAL IV PRN (16:20)
[2020-04-24] MEDS ORDERED: DIGOXIN 0.25 MG/ML AMP IV SCH (16:38)
[2020-04-24] MEDS: ENOXAPARIN 60 MG/0.6 ML SYR SUBQ SCH (17:00)
[2020-04-24] MEDS ORDERED: Z-GUARD PASTE TP ONE (17:45)
--- NOTE | 2020-04-24 19:45 | NUR ---
RECEIVED REPORT FROM DAY SHIFT RN; PT ALERT TO NAME; CONFUSED @ TIMES. RESTRAINTS IN PLACE. AFIB/FLUTTER ON MONITOR; CARDIZEM DRIP @ 15 MG/HR HR 110-120S @ THIS TIME. PALPABLE IRREGULAR PULSES. LUNGS DIMINISHED @ THIS TIME. ABD SOFT NON DISTENDED. PT INCONTINENT TO URINE AND STOOL. SKIN NON INTACT, REDNESS NOTED AND SACRAL WOUND. BED LOCKED IN LOWEST POSITION. WILL CONTINUE TO OBSERVE.
[2020-04-25] VITALS (11 sets, daily range): BP systolic 105–132; BP diastolic 55–76
[2020-04-25] MEDS: Z-GUARD PASTE TP SCH ×2 (01:00→13:00)
[2020-04-25] MEDS ORDERED: DILTIAZEM 125 MG/25 ML VIAL IV ONE (06:45)
--- NOTE | 2020-04-25 08:00 | NUR ---
RECEIVED REPORT FROM NIGHTSHIFT RN. PT IS A&O X1, CAN FOLLOW SIMPLE COMMANDS. PT IS CONTROLLED A-FIB ON THE MONITOR. PT HAS PERIPHERAL IV RT AC 20g, RUNNING CARDIZEM DRIP @ 15MG/HR. PT IS NPO EXCEPT MEDS. PT HAS BILATERAL WRIST RESTRAINTS APPLIED, SKIN INTACT UNDER RESTRAINTS. PT HAS INCONTINENT DERMATITIS TO SACRAL AREA. SAFETY MEASURES IN PLACE, WILL CONTINUE TO MONITOR.
[2020-04-25] MEDS: ASCORBIC ACID 500 MG TAB PO SCH (09:00)
[2020-04-25] MEDS: ZINC SULF 220 MG CAP PO SCH (09:00)
[2020-04-25] MEDS: METOPROLOL 25 MG TAB PO SCH ×2 (09:00→21:39)
[2020-04-25] MEDS: DIGOXIN 0.125 MG TAB PO SCH (09:00)
[2020-04-25] MEDS: INSULIN LISPRO SLIDING SCALE 100 UNITS/ML VIAL SUBQ PRN ×3 (11:30→21:58)
[2020-04-25] MEDS: BLOOD GLUCOSE MONITORING 1 DEV DEV FS SCH ×3 (11:30→21:57)
--- NOTE | 2020-04-25 11:38 | NUR ---
DR LO, ON UNIT. UPDATED ABOUT PTs CONDITION
--- NOTE | 2020-04-25 12:15 | NUR ---
PER GARFIELD MICHAELS
--- NOTE | 2020-04-25 14:30 | NUR ---
PT IS ON RM AIR, OXYGEN SATURATION 96%, HR: 80-90s. PT IS RESTING COMFORTABLY, WILL CONT. TO MONITOR
[2020-04-25 15:08] LABS: ANION GAP 15.6 (8-16); CARBON DIOXIDE 22.2 mmol/L (21-32); CHLORIDE 118 mmol/L (98-107); CREATININE 1.8 mg/dL (0.6-1.3); GLUCOSE 213 mg/dL (74-106); POTASSIUM 4.8 mmol/L (3.5-5.1); SODIUM SERUM 151 mmol/L (136-145)
[2020-04-25 15:46] LABS: UREA NITROGEN, BLOOD 72 mg/dL (7-18)
--- NOTE | 2020-04-25 15:49 | NUR ---
RECEIVED CRITICAL FOR BUN 72, CR 1.8, DR VILLANUEVA NOTIFIED.
--- NOTE | 2020-04-25 16:39 | NUR ---
04/23/20 FOLLOW UP COMPLETED PLEASE REFER TO NUTRITION ASSESSMENT UNDER CARE ACTIVITY FOR ESTIMATED NUTRITIONAL NEEDS. 1. RECOMMEND PUREE DIET PER PRODUCT MANAGER MEDICAL DEVICE 2. RECOMMEND CCHO DIETARY RESTRICTIONS AND GLUCERNA TID 3. PROVIDE ASSISTANCE WITH MEALS 4. RD TO FOLLOW-UP 2-3 DAYS, HIGH RISK REBEL BARNETT, RD
[2020-04-25] MEDS: ENOXAPARIN 60 MG/0.6 ML SYR SUBQ SCH (17:00)
--- NOTE | 2020-04-25 18:53 | NUR ---
DR VILLANUEVA ORDERED TO DOWNGRADE TO TELE. BAGGAGE SECURITY CHECKER NOTIFIED.
--- NOTE | 2020-04-25 21:35 | NUR ---
REPORT GIVEN TO KARIS FONG, FOR CONTINUITY OF CARE
--- NOTE | 2020-04-25 21:35 | NUR ---
RECEIVED PT AAOX 2 TO 3 , COMBATIVE , UNCOOPERATIVE , HARD HEADED , TRYING TO KICK THE STAFFE . IV SITE INTACT AND PATENT . CARDIZEM DRIP - HOLD PER SAMY THE HR WAS 90 '2 AND WAS CONTROLLED A FIB . PLAN OF CARE DISCUSSED AND POOR UNDERSTANDONG DUE TO MENTAL STATUS . ON TELE MONITOR . SAFETY MEASURES IN PLACE - ON BILAT . SOFT WRIST RESTRAINT . W/ INCONTINENET DERMATITIS . WILL CONT. TO MONITOR
--- NOTE | 2020-04-26 | NUR ---
HR ON TELE MONITOR , INCREASING - BUT PT . APPEARS COLMFORTABLE ON BED - NID 02 SAT WNL . WILL CONT. TO MONITOR
[2020-04-26] MEDS: Z-GUARD PASTE TP SCH ×2 (01:00→13:24)
[2020-04-26 04:00] VITALS: BP 126/84
--- NOTE | 2020-04-26 04:00 | NUR ---
MADE ROUNDS , NO S/SX OF ACUTE DISTRESS NOTED - INCERASING HR - WILL GIVE CARDIZEM PRN IF CONT. TACHYCARDIC ORDERED
--- NOTE | 2020-04-26 06:11 | NUR ---
UPDATING DR. FISHER PT HAS STEADY 140 'S - MOSTLY 148 , UNCONTROLLED A FIB - PT DOES NOT COMPLAIN ANYTHING AND APPEARS COMFORTABLY RESTING ON BED . WILL CONT. TO MONITOR
[2020-04-26 06:57] LABS: BASOPHILS # (AUTO) 0.1 K/uL (0.00-0.22); BASOPHILS % (AUTO) 0.3 % (0.0-2.0); HEMATOCRIT 50.5 % (36-52); HEMOGLOBIN 16.8 g/dL (12.0-18.0); LYMPHOCYTES # (AUTO) 0.6 K/uL (2.0-11.5); LYMPHOCYTES % (AUTO) 3.5 % (20.5-51.1); MEAN CORPUSCULAR HEMOGLOBIN 32 pg (27-31); MEAN CORPUSCULAR HGB CONC 33 g/dL (33-37); MEAN CORPUSCULAR VOLUME 95.2 fL (80-94); MONOCYTES # (AUTO) 0.8 K/uL (0.8-1.0); MONOCYTES % (AUTO) 4.4 % (1.7-9.3); NEUTROPHILS # (AUTO) 15.7 K/uL (1.8-7.7); NEUTROPHILS % (AUTO) 91.8 % (42.2-75.2); PLATELET COUNT (AUTO) 297 K/uL (140-450); RED CELL DISTRIBUTION WIDTH 16.5 % (11.6-13.7); WHITE BLOOD COUNT (AUTO) 17.1 K/uL (4.8-10.8)
--- NOTE | 2020-04-26 07:00 | NUR ---
PERSISTENT TACHY CARDIC , 140 'S - UNCONTROLLED A FIN ON TELE MONITOR - CARDIZEM TIV GIVEN - WILL ENDORSE TO AM SHIFT TO FF UP TO DR. FISHER IF HE WANTS TO RESUME CARDIZEM DRJACKSONN .
[2020-04-26] MEDS: DILTIAZEM 25 MG/5 ML VIAL IVP PRN ×2 (07:06→21:55)
--- NOTE | 2020-04-26 07:30 | NUR ---
RECEIVED PATIENT FROM NIGHT NURSE. PATIENT IN BED AWAKE AND ALERT. VERY COMBATIVE AND VERBALLY AGGRESSIVE TOWARDS STAFF. SOFT RESTRAINTS TO UPPER BILATERAL ARMS NOTED. SKIN INTACT. RESP EVEN AND UNLABORED ON ROOM AIR AT THIS TIME, O2SAT 93%. PATIENT NOT FOLLOWING COMMAND AND THREATENED TO KICK STAFFS. HOB ELEVATED. DROPLET PRECAUTION OBSERVED. SAFETY MEASURES IN PLACE. CALL LIGHT WITHIN REACH. WILL CONTINUE TO MONITOR.
--- NOTE | 2020-04-26 07:30 | NUR ---
ENDORSED TO AM SHIFT - PT - STABLE . ENDORSE TO AM SHIFT TO UPDATE DR. VILLANUEVA ABOUT THE RECOMMENDATION OF ST DIETARY TECH .
[2020-04-26 07:48] LABS: ANION GAP 20.9 (8-16); CARBON DIOXIDE 17.8 mmol/L (21-32); CHLORIDE 121 mmol/L (98-107); CREATININE 1.4 mg/dL (0.6-1.3); GLUCOSE 180 mg/dL (74-106); POTASSIUM 5.7 mmol/L (3.5-5.1); SODIUM SERUM 154 mmol/L (136-145)
[2020-04-26] MEDS: BLOOD GLUCOSE MONITORING 1 DEV DEV FS SCH ×4 (07:59→20:19)
[2020-04-26 08:00] VITALS: BP 123/79
[2020-04-26] MEDS ORDERED: LORazepam 2 MG/ML VIAL IM/IVP PRN (08:40)
[2020-04-26] MEDS: ASCORBIC ACID 500 MG TAB PO SCH ×2 (09:00→09:26)
[2020-04-26] MEDS: METOPROLOL 25 MG TAB PO SCH ×3 (09:00→20:39)
[2020-04-26] MEDS: ZINC SULF 220 MG CAP PO SCH ×2 (09:00→09:27)
[2020-04-26] MEDS: DIGOXIN 0.125 MG TAB PO SCH ×2 (09:00→09:26)
[2020-04-26] MEDS ORDERED: CRUSHER, PILL MC ONE (09:20)
--- NOTE | 2020-04-26 09:25 | NUR ---
PATIENT IN BED AWAKE AND ALERT. PT YELLING AT STAFF AND CONTINUED TO BE VERY COMBATIVE, ATTEMPTING TO KICK AT STAFF WITH BOTH FEET. PATIENT UNABLE TO FOLLOW COMMAND AND NONCOMPLIANT. PATIENT REFUSED ALL PO MEDICATIONS. ATIVAN IVP GIVEN FOR RESTLESSNESS. VITALS WNL. LUNGS CLEAR. RESP EVEN AND UNLABORED ON ROOM AIR. PATIENT ABLE TO STATE HAVING PAIN BUT UNABLE TO TELL STAFF WHERE. WILL TALK TO DR VILLANUEVA FOR IVP ORDER FOR PAIN. CALL LIGHT WITHIN REACH. WILL CONTINUE TO MONITOR.
[2020-04-26] MEDS: MORPHINE SULFATE 2 MG/ML SYR IVP PRN (11:01)
--- NOTE | 2020-04-26 11:15 | NUR ---
MORPHINE GIVEN IVP PER DR VILLANUEVA ORDER. PATIENT ABLE TO CALM DOWN AND NO ACUTE S/S DISTRESS AT THIS TIME. WILL CONTINUE TO MONITOR.
[2020-04-26 12:00] VITALS: BP 116/95
[2020-04-26 12:29] LABS: UREA NITROGEN, BLOOD 75 mg/dL (7-18)
[2020-04-26] MEDS: INSULIN LISPRO SLIDING SCALE 100 UNITS/ML VIAL SUBQ PRN ×2 (13:23→20:26)
--- NOTE | 2020-04-26 13:35 | NUR ---
PATIENT IN BED SLEEPING, CHEST NOTED RISING, RESP EVEN AND UNLABORED ON ROOM AIR, O2SAT 94%. NO ACUTE S/S DISTRESS AT THIS TIME. BLOOD GLUCOSE 239, INSULIN COVERAGE PROVIDED PER SLIDING SCALE. CALL LIGHT WITHIN REACH. WILL CONTINUE TO MONITOR.
--- NOTE | 2020-04-26 15:32 | NUR ---
PATIENT IN BED SLEEPING, CHEST NOTED RISING. RESP EVEN AND UNLABORED ON ROOM AIR. NO ACUTE S/S DISTRESS AT THIS TIME. CALL LIGHT WITHIN REACH. WILL CONTINUE TO MONITOR
[2020-04-26 16:00] VITALS: BP 134/98
[2020-04-26] MEDS: ENOXAPARIN 60 MG/0.6 ML SYR SUBQ SCH (17:16)
--- NOTE | 2020-04-26 17:35 | NUR ---
PATIENT IN BED SLEEPING, CHEST NOTED RISING. NO ACUTE S/S DISTRESS. EKG NOTED AFLUTTER WITH TACHYCARDIA. DR VILLANUEVA MADE AWARE. NO ACUTE S/S DISTRESS AT THIS TIME. RESP EVEN AND UNLABORED ON ROOM AIR, O2SAT 95%. CALL LIGHT WITHIN REACH. WILL CONTINUE TO MONITOR.
[2020-04-26] MEDS: DEXT 5% / NACL 0.9% 1,000 ML IV SCH (18:52)
--- NOTE | 2020-04-26 19:35 | NUR ---
ENDORSED PATIENT NIGHT NURSE. PATIENT IN STABLE CONDITION.
--- NOTE | 2020-04-26 19:40 | NUR ---
RECEIVED REPORT FROM ESTRELLITA RNJAYSON. PT AOX1, CONFUSED, OPENS EYES TO LIGHT TOUCH AND SHAKING, ON ROOM AIR. NO S/S RESPIRATORY DISTRESS. NO C/O PAIN AT THIS TIME. IV SITE R HAND 18G, PATENT AND INTACT INFUSING IVF ORDERED. SOFT WRIST RESTRAINTS BILATERAL, NO INJURIES NOTED. SAFETY MEASURES IN PLACE. CALL LIGHT WITHIN REACH. WILL CONTINUE TO MONITOR
[2020-04-26 20:00] VITALS: BP 142/94
--- NOTE | 2020-04-26 20:30 | NUR ---
PT BLOOD SUGAR 192. GAVE 2 UNITS INSULIN PER SLIDING SCALE. TOLERATED WELL. WILL CONTINUE TO MONITOR
--- NOTE | 2020-04-26 20:34 | NUR ---
EXPLAINED TO PT SCHEDULED MEDICATIONS AND ASKED IF HE WANTED TO TAKE THEM. HE NODDED HIS HEAD. PULLED OUT SCHEDULED METOPROLOL MEDICATIONS. PT CHANGED HIS MIND AND REFUSED TO TAKE THEM. EXPLAINED TO PT THE IMPORTANCE OF TAKING MEDS. PT STILL REFUSED. DISPOSED OPENED MEDICATIONS IN PHARMACEUTICAL [facility]ASTE
--- NOTE | 2020-04-26 23:15 | NUR ---
PT HR 151. ADMINISTERED PRN CARDIZEM, REASSESSED AND HR STILL 150. MD AWARE. NEW ORDERS RECEIVED. WILL NOTIFY SOLE FILLER
[2020-04-26] MEDS ORDERED: DILTIAZEM 25 MG/5 ML VIAL IVP ONE (23:30)
--- NOTE | 2020-04-26 23:52 | NUR ---
PER EKG STRIP, PT HR 92 POST CARDIZEM. NO DISTRESS NOTED. WILL CONTINUE TO MONITOR
[2020-04-27] VITALS (18 sets, daily range): BP systolic 106–158; BP diastolic 60–108
--- NOTE | 2020-04-27 00:24 | NUR ---
PT BP 120/74 HR 80. PT IS STABLE. WILL CONTINUE TO MONITOR
--- NOTE | 2020-04-27 00:30 | NUR ---
CLEANED CHANGED REPOSITIONED PT. PT ATTEMPTED TO KICK INTERIOR DESIGN PROFESSOR. SAFETY MEASURES IN PLACE. WILL CONTINUE TO MONITOR
--- NOTE | 2020-04-27 00:45 | NUR ---
PT BP 123/62 HR 69. NO DISTRESS NOTED. WILL CONTINUE TO MONITOR
[2020-04-27] MEDS: Z-GUARD PASTE TP SCH ×2 (01:15→12:40)
--- NOTE | 2020-04-27 02:51 | NUR ---
PT ASLEEP IN BED. RESPIRATIONS EVEN AND UNLABORED. WILL CONTINUE TO MONITOR
--- NOTE | 2020-04-27 05:40 | NUR ---
PT KICKING WHILE CLEANED CHANGED REPOSITIONED. PT IS STABLE. WILL CONTINUE TO MONITOR
[2020-04-27] MEDS: DEXT 5% / NACL 0.9% 1,000 ML IV SCH (05:47)
[2020-04-27] MEDS: BLOOD GLUCOSE MONITORING 1 DEV DEV FS SCH ×4 (06:14→21:51)
--- NOTE | 2020-04-27 06:14 | NUR ---
PT REFUSED TO HAVE BLOOD SUGAR CHECK. PT KICKING AND CLENCHING FIST. WILL CONTINUE TO MONITOR
--- NOTE | 2020-04-27 07:26 | NUR ---
ENDORSED PT TO DAY RN FOR CONTINUITY OF CARE. PT IS IN STABLE CONDITION
--- NOTE | 2020-04-27 07:26 | NUR ---
RECEIVED PATIENT FROM NIGHT NURSE. PATIENT IN BED SLEEPING, CHEST NOTED RISING. RESP EVEN AND UNLABORED ON ROOM AIR. NO ACUTE S/S DISTRESS AT THIS TIME. SOFT RESTRAINS ON UPPER BILATERAL. RH 18G INFUSING D5NS 75ML/HR BY GRAVITY. HOB ELEVATED. CALL LIGHT WITHIN REACH. WILL CONTINUE TO MONITOR.
[2020-04-27 07:59] LABS: BASOPHILS # (AUTO) 0.1 K/uL (0.00-0.22); BASOPHILS % (AUTO) 0.4 % (0.0-2.0); EOSINOPHILS % (AUTO) 0.1 % (0.0-4.0); HEMATOCRIT 51.5 % (36-52); HEMOGLOBIN 16.7 g/dL (12.0-18.0); LYMPHOCYTES # (AUTO) 0.5 K/uL (2.0-11.5); MEAN CORPUSCULAR HEMOGLOBIN 32 pg (27-31); MEAN CORPUSCULAR HGB CONC 32 g/dL (33-37); MEAN CORPUSCULAR VOLUME 98.3 fL (80-94); MONOCYTES # (AUTO) 1.3 K/uL (0.8-1.0); MONOCYTES % (AUTO) 7.8 % (1.7-9.3); NEUTROPHILS # (AUTO) 14.8 K/uL (1.8-7.7); PLATELET COUNT (AUTO) 279 K/uL (140-450); RED BLOOD CELL COUNT(AUTO) 5.24 MIL/uL (4.20-6.10); RED CELL DISTRIBUTION WIDTH 16.7 % (11.6-13.7); WHITE BLOOD COUNT (AUTO) 16.6 K/uL (4.8-10.8)
[2020-04-27 08:29] LABS: ANION GAP 21.1 (8-16); CARBON DIOXIDE 18.7 mmol/L (21-32); CHLORIDE 125 mmol/L (98-107); CREATININE 1.5 mg/dL (0.6-1.3); GLUCOSE 262 mg/dL (74-106); POTASSIUM 4.8 mmol/L (3.5-5.1)
[2020-04-27 08:36] LABS: SODIUM SERUM 160 mmol/L (136-145); UREA NITROGEN, BLOOD 78 mg/dL (7-18)
[2020-04-27 08:42] LABS: LYMPHOCYTES % (AUTO) 2.7 % (20.5-51.1)
[2020-04-27] MEDS: DIGOXIN 0.125 MG TAB PO SCH (09:00)
[2020-04-27] MEDS: ZINC SULF 220 MG CAP PO SCH (09:00)
[2020-04-27] MEDS: ASCORBIC ACID 500 MG TAB PO SCH (09:00)
[2020-04-27] MEDS: METOPROLOL 25 MG TAB PO SCH ×2 (09:00→21:51)
--- NOTE | 2020-04-27 09:35 | NUR ---
PATIENT IN BED SLEEPING, CHEST NOTED RISING. EASILY AWAKEN TO ALERT. PATIENT COMBATIVE AND NONCOMPLIANT. ATTEMPTED TO KICK AT STAFF AND YELLING AT STAFF. PATIENT REFUSED MORNING PO MEDICATIONS AFTER NUMEROUS ATTEMPTS. RESP EVEN AND UNLABORED ON ROOM AIR. HOB ELEVATED. CALL LIGHT WITHIN REACH. WILL CONTINUE TO MONITOR.
--- NOTE | 2020-04-27 10:04 | NUR ---
RECEIVED ORDER TO TRANSFER PATIENT TO ICU FOR CONTINUITY OF CARE D/T TACHYCARDIA. REPORT GIVEN TO HETAL FERREIRA. PATIENT IN BED COMFORTABLE.
[2020-04-27] MEDS: MORPHINE SULFATE 2 MG/ML SYR IVP PRN (12:40)
[2020-04-27] MEDS: INSULIN LISPRO SLIDING SCALE 100 UNITS/ML VIAL SUBQ PRN (12:41)
[2020-04-27] MEDS: DILTIAZEM 125 MG in DEXTROSE 5% 100 ML IV SCH ×4 (13:24→18:08)
--- NOTE | 2020-04-27 13:24 | NUR ---
CARDIZEM DRIP STARTED AT 5ML/HR. WILL MONITOR PATIENT CLOSELY.
--- NOTE | 2020-04-27 14:00 | NUR ---
CARDIZEM DRIP INCREASED TO 10ML/HR. WILL MONITOR PATIENT CLOSELY.
--- NOTE | 2020-04-27 14:31 | NUR ---
CARDIZEM DRIP INCREASED TO 15ML/HR. WILL MONITOR PATIENT CLOSELY.
--- NOTE | 2020-04-27 14:50 | NUR ---
INFORMED DR. POLANCO ABOUT PT'S PERSISTENT HR OF 150S IN SPITE OF CARDIZEM DRIP. PRN METOPROLOL IV GIVEN. WILL CONTINUE TO MONITOR PATIENT.
[2020-04-27] MEDS: DEXT 5% / NACL 0.45% 1,000 ML IV SCH ×2 (16:48→23:55)
[2020-04-27] MEDS: ENOXAPARIN 60 MG/0.6 ML SYR SUBQ SCH (17:54)
--- NOTE | 2020-04-27 18:08 | NUR ---
CARDIZEM DRIP STARTED AGAIN. PT'S HR WAS 170. WILL MONITOR PATIENT CLOSELY.
--- NOTE | 2020-04-27 18:40 | NUR ---
PT'S HR 55-62, CARDIZEM DRIP STOPPED.
--- NOTE | 2020-04-27 19:40 | NUR ---
REPORT GIVEN TO DIRECTOR OF CORPORATE RESPONSIBILITY NURSE SAMY. PATIENT RESTING IN BED, HR 85.
[2020-04-28] VITALS (21 sets, daily range): BP systolic 102–155; BP diastolic 48–97
[2020-04-28] MEDS: Z-GUARD PASTE TP SCH ×2 (01:12→13:56)
[2020-04-28] MEDS: BLOOD GLUCOSE MONITORING 1 DEV DEV FS SCH ×4 (06:18→21:00)
[2020-04-28] MEDS: INSULIN LISPRO SLIDING SCALE 100 UNITS/ML VIAL SUBQ PRN (07:00)
[2020-04-28] MEDS: DEXT 5% / NACL 0.45% 1,000 ML IV SCH (07:55)
--- NOTE | 2020-04-28 08:33 | NUR ---
FOUND PATIENT PULLED OUT IV, CANNULA INTACT, MINIMAL BLEEDING ON IV SITE, STABLE WITH GUARD. RESTARTED IV ON RFA 18G, CLEAN AND INTACT, CONTINUE INFUSING D5NS0.45 AT 125 ML/HR AND CARDIZEM DRIP AT 10 MG/HR. EDUCATED PATIENT NOT TO REMOVE IV, REINFORCEMENT NEEDED DUE TO MENTAL STATUS. SAFETY MEASURES IN PLACE. BED IN LOW POSITION, CALL LIGHT WITHIN REACH, BED ALARM ACTIVATED. Addendum: 04/28/20 at 0838 by Hortensia Phan RN REINSERTED 22G, NOT 18G.
[2020-04-28 08:53] LABS: BASOPHILS # (AUTO) 0.1 K/uL (0.00-0.22); BASOPHILS % (AUTO) 0.6 % (0.0-2.0); EOSINOPHILS % (AUTO) 0.3 % (0.0-4.0); HEMATOCRIT 49.9 % (36-52); LYMPHOCYTES # (AUTO) 0.3 K/uL (2.0-11.5); LYMPHOCYTES % (AUTO) 1.9 % (20.5-51.1); MEAN CORPUSCULAR HEMOGLOBIN 32 pg (27-31); MEAN CORPUSCULAR HGB CONC 32 g/dL (33-37); MEAN CORPUSCULAR VOLUME 98.4 fL (80-94); MONOCYTES # (AUTO) 0.6 K/uL (0.8-1.0); NEUTROPHILS # (AUTO) 13.9 K/uL (1.8-7.7); NEUTROPHILS % (AUTO) 93.2 % (42.2-75.2); PLATELET COUNT (AUTO) 263 K/uL (140-450); RED BLOOD CELL COUNT(AUTO) 5.07 MIL/uL (4.20-6.10); RED CELL DISTRIBUTION WIDTH 16.8 % (11.6-13.7); WHITE BLOOD COUNT (AUTO) 14.9 K/uL (4.8-10.8)
[2020-04-28 09:02] LABS: ANION GAP 17.3 (8-16); CARBON DIOXIDE 21.7 mmol/L (21-32); CHLORIDE 129 mmol/L (98-107); CREATININE 1.6 mg/dL (0.6-1.3); GLUCOSE 300 mg/dL (74-106); UREA NITROGEN, BLOOD 53 mg/dL (7-18)
[2020-04-28 09:50] LABS: SODIUM SERUM 163 mmol/L (136-145)
--- NOTE | 2020-04-28 10:00 | NUR ---
CRITICAL LAB FOR SODIUM 163, DR VILLANUEVA NOTIFIED.
[2020-04-28] MEDS: ASCORBIC ACID 500 MG TAB PO SCH (10:15)
[2020-04-28] MEDS: METOPROLOL 25 MG TAB PO SCH ×2 (10:15→21:00)
--- NOTE | 2020-04-28 10:15 | NUR ---
ADMINISTERED AM SCHEDULED MEDS WITH BREAKFAST, PEACH CUP, PATIENT SWALLOWED ALL MEDS, AND BUT LOW INTAKE WITH BREAKFAST, ATE 10% OF BREAKFAST ONLY. PATIENT REFUSED TO COOPERATED AND KICKING.
[2020-04-28] MEDS: ZINC SULF 220 MG CAP PO SCH (10:16)
[2020-04-28] MEDS: DIGOXIN 0.125 MG TAB PO SCH (10:17)
--- NOTE | 2020-04-28 10:37 | NUR ---
DR VILLANUEVA IS ROUNDING ON PATIENT. INFORMED OF PATIENT'S CONDITION, DR VILLANUEVA WAS AWARE. ORDERED INSERTED PICC LINE, INSERT NGT AND CHANGE D4W AT 125 ML/HR, REPEATED AND CONFIRMED WITH DR VILLANUEVA.
[2020-04-28] MEDS: DEXTROSE 5% 1,000 ML IV SCH ×2 (10:40→19:07)
--- NOTE | 2020-04-28 11:03 | NUR ---
ATTEMPTED TO CALL PATIENT'S JESUS, NO ANSWER. CALLED SON SOSA, UPDATED SOSA WITH PATIENT'S CURRENT CONDITION, SOSA WAS AWARE, EXPLAINED DR VILLANUEVA ORDERED FOR PICC LINE PLACEMENT FOR MEDICATIONS AND IVF, ANSWERED ALL SOSA'S QUESTIONS AND SOSA WAS AWARE, OBTAINED TELEPHONE CONSENT WITH ANOTHER RN, SOSA WAS AWARE AND AGREEABLE TO PROCEDURE.
--- NOTE | 2020-04-28 11:09 | NUR ---
CALLED [facility] [phone], PER BROADCAST OPERATIONS MANAGER, HE WILL NOTIFY JEANETTE PICC LINE RN TO CALL BACK, PROVIDED A CALL BACK #.
--- NOTE | 2020-04-28 11:54 | NUR ---
RECEIVED A CALL BACK FROM PICC HETAL REID, PER JEANETTE, SHE IS AT [facility], ONCE SHE'S DONE, THEN SHE WILL HEAD TO [place].
[2020-04-28] MEDS: DILTIAZEM 125 MG in DEXTROSE 5% 100 ML IV SCH (12:21)
--- NOTE | 2020-04-28 13:56 | NUR ---
NGT INSERTED, SWOOSH HEARD ON AUSCULTATION. AWAITING FOR CXR CONFIRMATION. JIANG INSERTED, YELLOW URINE RETURNED, SECURED. CLEANSED PERINEAL AREA WITH WATER, PAT DRY, APPLIED Z-GUARD ON PERINEAL AREA AND SACRAL, SECURED WITH HEAR-SHAPED OPTIFOAM. PATIENT TOLERATED FAIR. SAFETY MEASURES IN PLACE. BED IN LOW POSITION, AND BED ALARM ACTIVATED.
--- NOTE | 2020-04-28 14:03 | NUR ---
04/23/20 RD FOLLOW UP COMPLETED PLEASE REFER TO NUTRITION ASSESSMENT UNDER CARE ACTIVITY FOR ESTIMATED NUTRITIONAL NEEDS. 1. KEEP NPO PER DR. VILLANUEVA 2. WHEN PEG IS PLACED CONSIDER GLUCERNA 1.2 @ 60 ML/HR. START AT 10 ML/HR, INCREASE BY 10 Q6H. -THIS WILL PROVIDE 1440 ML OF VOLUME, 1159 ML OF WATER, 1728 KCAL AND 86 GM OF PROTEIN. MEETING 100% OF KCAL AND PROTEIN NEEDS. 3. RECOMMEND FLUSH OF [address] TO FOLLOW-UP 2-3 DAYS, HIGH RISK VALENTINA BARNETT RD Addendum: 04/28/20 at [address] *INCORRECT DATE FOR RD FOLLOW UP. CORRECT DATE: 04/28/21 RD FOLLOW UP
--- NOTE | 2020-04-28 14:59 | NUR ---
NGT IS NOT IN RIGHT POSITION, ATTEMPTED TO REINSERT, BUT PATIENT INCORPORATED, KICKING AND SCREAMING, WILL REATTEMPT LATER.
--- NOTE | 2020-04-28 16:22 | NUR ---
PICC LINE JEANETTE RN IS AT BEDSIDE AND INSERTING A PICC LINE AT THIS TIME.
--- NOTE | 2020-04-28 17:15 | NUR ---
SWITCHED ALL IV TO PICC LINE AND CHANGED ALL TUBINGS, PATIENT AWAKE AND RESTING ON BED, FLACC 0. RESPIRATION EVEN AND UNLABORED ON ROOM AIR, SPO2 AT 95% AT THIS TIME. SAFETY MEASURES IN PLACE. BED IN LOW POSITION, BED LOCKED AND BED ALARM ACTIVATED.
--- NOTE | 2020-04-28 18:25 | NUR ---
RE-ATTEMPTED TO INSERT NGT, PATIENT IS UNCOOPERATIVE, KICKING AND SCREAMING, UNSUCCESSFUL. WILL ENDORSE TO ONCOMING RN.
--- NOTE | 2020-04-28 19:28 | NUR ---
ENDORSED PATIENT TO FORENSICS TEAM DIRECTOR NURSE SAMY FOR CONTINUITY OF CARE.
[2020-04-29] VITALS (18 sets, daily range): BP systolic 88–159; BP diastolic 50–83
[2020-04-29] MEDS: Z-GUARD PASTE TP SCH ×2 (01:00→13:08)
[2020-04-29] MEDS ORDERED: DILTIAZEM 125 MG/25 ML VIAL IV ONE (02:51)
[2020-04-29] MEDS: DILTIAZEM 125 MG in DEXTROSE 5% 100 ML IV SCH (03:02)
[2020-04-29] MEDS: DEXTROSE 5% 1,000 ML IV SCH ×3 (03:06→18:53)
[2020-04-29] MEDS: BLOOD GLUCOSE MONITORING 1 DEV DEV FS SCH ×4 (06:17→21:00)
[2020-04-29 06:41] LABS: BASOPHILS % (AUTO) 0.2 % (0.0-2.0); EOSINOPHILS % (AUTO) 0.1 % (0.0-4.0); HEMOGLOBIN 14.8 g/dL (12.0-18.0); LYMPHOCYTES # (AUTO) 0.6 K/uL (2.0-11.5); LYMPHOCYTES % (AUTO) 3.6 % (20.5-51.1); MEAN CORPUSCULAR HEMOGLOBIN 31 pg (27-31); MEAN CORPUSCULAR HGB CONC 32 g/dL (33-37); MEAN CORPUSCULAR VOLUME 95.3 fL (80-94); MONOCYTES # (AUTO) 0.6 K/uL (0.8-1.0); MONOCYTES % (AUTO) 3.9 % (1.7-9.3); NEUTROPHILS % (AUTO) 92.2 % (42.2-75.2); PLATELET COUNT (AUTO) 207 K/uL (140-450); RED BLOOD CELL COUNT(AUTO) 4.82 MIL/uL (4.20-6.10); RED CELL DISTRIBUTION WIDTH 16.4 % (11.6-13.7); WHITE BLOOD COUNT (AUTO) 16.2 K/uL (4.8-10.8)
--- NOTE | 2020-04-29 07:10 | NUR ---
RECEIVED PATIENT FROM AUTOMOTIVE PAINTER NURSE SAMY FOR CONTINUITY OF CARE, PATIENT IS LYING ON SUPINE POSITION, PATIENT IS ASLEEP ON BED COMFORTABLY ON BED. RESPIRATION EVEN AND UNLABORED ON ROOM AIR, SPO2 AT 97%. FLACC 0. IV ON RFA 22G, CLEAN AND INTACT, SALINE LOCK; MANDI PICC RUNNING CARDIZEM DRIP AT 10 MG/HR AND D5W AT 125 ML/HR. ABD SOFT, ROUND AND NON-DISTENDED. SKIN DRY AND WARM TO TOUCH, SACRAL REDNESS, Z-GUARD AND SECURED WITH OPTIFOAM. NGT IN PLACE, NOT RUNNING AT THIS TIME. PATIENT IS INCONTINENT, JIANG IN PLACE, YELLOW URINE DRAINING WITH GRAVITY. BILATERAL SOFT WRIST RESTRAINTS IN PLACE, NO SIGNS OF INJURY, CAPILLARY REFILLED < 3 SECONDS. PATIENT IS BEDREST. FALL RISK PROTOCOL AND ENHANCED DROPLET PRECAUTION IN PLACE. SAFETY MEASURES IN PLACE. BED IN LOW POSITION, BED ALARM ACTIVATED, AND BED LOCKED.
[2020-04-29 07:33] LABS: ANION GAP 16.3 (8-16); CARBON DIOXIDE 21.1 mmol/L (21-32); CHLORIDE 127 mmol/L (98-107); CREATININE 1.4 mg/dL (0.6-1.3); GLUCOSE 130 mg/dL (74-106); POTASSIUM 5.4 mmol/L (3.5-5.1); UREA NITROGEN, BLOOD 49 mg/dL (7-18)
--- NOTE | 2020-04-29 08:45 | NUR ---
RECEIVED CRITICAL LAB FOR SODIUM 159, TREND DOWN, NOTIFIED DR VICTORIA AT NURSING STATION, DR VICTORIA WAS AWARE AND ORDER TO CONTINUE IVF D5W AT 125 ML/HR AND 200 ML/Q6H WATER FLUSH VIA NG.
[2020-04-29 09:00] LABS: SODIUM SERUM 159 mmol/L (136-145)
[2020-04-29] MEDS: ASCORBIC ACID 500 MG TAB PO SCH (09:35)
[2020-04-29] MEDS: DIGOXIN 0.125 MG TAB PO SCH (09:35)
[2020-04-29] MEDS: METOPROLOL 25 MG TAB PO SCH ×2 (09:35→21:00)
[2020-04-29] MEDS: ZINC SULF 220 MG CAP PO SCH (09:35)
--- NOTE | 2020-04-29 09:37 | NUR ---
BP 141/77 PULSE 94, SPO2 AT 96% ON ROOM AIR, ADMINISTERED SCHEDULED MEDS VIA NGT, FLUSH BEFORE AND AFTER MEDS. FLUSHED 200 ML OF WATER PER DR VICTORIA ORDER, PROVIDED HYGIENE CARE, ORAL CARE, AND JIANG CARE, PATIENT IS UNCOOPERATIVE, TRYING TO KICK AND BITES, EDUCATED PATIENT, REINFORCEMENT NEEDED. RELEASED SOFT WRIST RESTRAINTS TO PERFORM ROM, PATIENT ATTEMPTED TO REMOVED JIANG AND NGT, REAPPLIED RESTRAINTS, SECURED AND NO INJURY NOTED. SAFETY MEASURES IN PLACE. BED IN LOW POSITION AND BED ALARM ACTIVATED.
[2020-04-29] MEDS ORDERED: SODIUM ZIRCONIUM CYCLOSILICATE 10 GM POWD.PACK PO SCH (09:45)
--- NOTE | 2020-04-29 10:32 | NUR ---
DR VILLANUEVA IS ROUNDING ON PATIENT, ORDERED TO HOLD CARDIZEM DRIP AND MONITOR PATIENT'S CONDITION WITH PO MEDS, IF PATIENT TOLERATED WELL, WILL DOWNGRADE TO TELE UNIT.
[2020-04-29] MEDS: INSULIN LISPRO SLIDING SCALE 100 UNITS/ML VIAL SUBQ PRN ×2 (11:44→17:38)
--- NOTE | 2020-04-29 11:44 | NUR ---
BLOOD GLUCOSE 278, 6 UNITS GIVEN VIA SUBQ. PATIENT IS RESTING ON BED AT THIS TIME. NO SIGNS OF DISTRESS NOTED. SAFETY MEASURES IN PLACE.
--- NOTE | 2020-04-29 12:06 | NUR ---
WITH ASSIST, PROVIDED HYGIENE CARE AND CHANGED ALL DIRTY LINENS, PATIENT TOLERATED FAIR. NO SIGNS OF INJURY, CAPILLARY REFILLED < [address] SEC[address] SAFETY MEASURES IN PLACE. BED IN LOW POSITION AND BED ALARM ACTIVATED.
--- NOTE | 2020-04-29 13:08 | NUR ---
PATIENT HAS ANOTHER MODERATE YELLOW SOFT BM, WITH ASSIST, PROVIDED HYGIENE CARE, CHANGED ALL DIRTY, APPLIED Z-GUARD ON PERINEAL AND SACRAL AREAS, PATIENT IS UNCOOPERATIVE, KICKING WITH LEGS AND GRABBING WITH ARMS, APPLIED SOFT WRIST RESTRAINTS, SAFETY MEASURES IN PLACE.
--- NOTE | 2020-04-29 13:55 | NUR ---
RECEIVED A CALL FROM PATIENT' SON SOSA, UPDATED HIM WITH PATIENT'S CURRENT CONDITION, SOSA WAS AWARE.
--- NOTE | 2020-04-29 14:31 | NUR ---
DR FISHER IS ROUNDING ON PATIENT, INFORMED CARDIZEM DRIP HELD. DR FISHER ORDERS CARDIZEM 30 MG PO Q6H VIA NGT, REPEATED AND CONFIRMED ORDER WITH MD.
--- NOTE | 2020-04-29 14:53 | NUR ---
FNS CONSULT RECEIVED FOR TUBE FEEDING. RECOMMENDATIONS FOR GLUCERNA 1.2 @ 60 ML/HR GIVEN TO HETAL ROMERO. CONTINUE FLUSH 200 ML Q6H PER AUTOMATION TEST DEVELOPER.
--- NOTE | 2020-04-29 16:14 | NUR ---
SOCIAL WORK NOTE: Patient's Orientation Unable To Assess Information Provided By SOSA ARMANDO - SON Comments SW WAS UNABLE TO MEET PATIENT AT BEDSIDE TO COMPLETE ASSESSMENT. SW COMPLETED ASSESSMENT WITH PATIENT'S SON. Tech Intern, Realtionship and Phone Number JESUS SMITH [phone] SOSA ARMANDO SON [phone] Healthcare Power of Terrazzo Finisher No Does Patient Have a POLST No Identifying Problems No Social Work Triggers Is A Social Work Consult Needed No Mandate Report Filed No Explanation Of Identifying Problems PATIENT IS A 79-YEAR-OLD MALE ADMITTED FOR ACUTE RESPIRATORY FAILURE. PATIENT HAS PMHX OF AFIB AND DIABETES. SON REPORTED NO HISTORY OF SUBSTANCE ABUSE OR MENTAL HEALTH. Admitted From Home Pre-Admission Level Of Functioning Status Assist With ADL Level Of Functioning Comment PATIENT RECEIVES ASSISTANCE WITH BATHING, MEALS, TRANSPORATION FROM FAMILY. Prior Resources/Services Used In Last 12 Months No Prior Resources Used Prior DME Walker Wheelchair Dialysis Comments N/A Living Situation Rents A Room Other Living Situation/Comment PER SON, PATIENT RENTS A ROOM. Patient Had Caregiver No Home Support CG/Fam Able To Meet Need Financial Issues No Known Financial Issue Referral To The Financial Counselor Needed No Factors/Needs No D/C Needs Identified Pt/Rep Participated In Discharge Plan Yes Patient/Family Agress With Discharge Plan Yes Discharge Plan Comments TENTATIVE DISCHARGE PLAN IS FOR PATIENT TO RETURN HOME. DC Plan Status Initiated
[2020-04-29 17:27] LABS: PHOSPHORUS 2.7 mg/dL (2.5-4.9)
--- NOTE | 2020-04-29 17:38 | NUR ---
BLOOD GLUCOSE 198, 2 UNIT GIVEN VIA SUBQ.
[2020-04-29] MEDS: DILTIAZEM 30 MG TAB PO SCH (18:15)
--- NOTE | 2020-04-29 18:15 | NUR ---
ADMINISTERED CARDIZEM VIA NGT.
--- NOTE | 2020-04-29 18:53 | NUR ---
PATIENT HAS A SMALL YELLOW SOFT BM, PROVIDED HYGIENE CARE AND CHANGED ALL DIRTY LINENS, POSITIONED PATIENT COMFORTABLY ON BED, SAFETY MEASURES IN PLACE. BED IN LOW POSITION AND BED ALARM ACTIVATED.
--- NOTE | 2020-04-29 19:36 | NUR ---
ENDORSED PATIENT TO BOUNTY HUNTER NURSE CHRIS FOR CONTINUITY OF CARE. SAFETY MEASURES IN PLACE.
--- NOTE | 2020-04-29 19:40 | NUR ---
RECEIVED ENDORSEMENT FROM ICU NURSE, PT IN BED AWAKE AND ALERT, BUT CONFUSED. PT HAS RESTRAINTS ON, NO INJURY NOTED TO SKIN. PT HAS NG TUBE INTACT ON LEFT NARE. JIANG CATHETER IN PLACE. ALL ORDERED PRECAUTIONS IN PLACE.
--- NOTE | 2020-04-29 21:00 | NUR ---
PT GIVEN ORDERED LOPRESSOR VIA NG TUBE B/P 159/83 P 77 FINGERSTICK IS 105, NO HUMALOG COVERAGE NEEDED.
[2020-04-30] VITALS: BP 128/65
--- NOTE | 2020-04-30 00:30 | NUR ---
PT TURNED AND REPOSITIONED IN BED HYDROGUARD APPLIED TO GIGI AREA. CARDIZEM GIVEN VIA NG TUBE. HR 77 B/P 128/65. PT TURNED AND REPOSITIONED, NO INJURY TO SKIN NOTED.
[2020-04-30] MEDS: Z-GUARD PASTE TP SCH ×2 (01:00→13:00)
--- NOTE | 2020-04-30 01:30 | NUR ---
GLUCERNIA 1.2 FEEDING STARTED ORDERED. WILL CONTINUE TO MONITOR. FOR RESIDUAL.
[2020-04-30] MEDS: DEXTROSE 5% 1,000 ML IV SCH ×4 (02:40→23:30)
[2020-04-30 04:00] VITALS: BP 131/68
--- NOTE | 2020-04-30 04:00 | NUR ---
PT WAS TURNED AND REPOSITIONED IN BED, FEEDING TOLERATED WELL, NO RESIDUAL NOTED.
--- NOTE | 2020-04-30 04:30 | NUR ---
D5 BAG REPLACED, FLUIDS RUNNING AT 125 ORDERED.
--- NOTE | 2020-04-30 05:24 | NUR ---
PT PULLED OUT NG TUBE, DURING ROUTINE CARE, NEW ONE PLACE, STAT CXR ORDERED FOR CONFIRMATION OF PLACEMENT.
[2020-04-30] MEDS: DILTIAZEM 30 MG TAB PO SCH ×5 (06:00→23:36)
--- NOTE | 2020-04-30 06:00 | NUR ---
NG TUBE REPLACED CXR TAKEN, OK TO USE, FEEDING RESUMED AND AM MEDS GIVEN.
[2020-04-30] MEDS: BLOOD GLUCOSE MONITORING 1 DEV DEV FS SCH ×4 (06:52→20:41)
[2020-04-30] MEDS: INSULIN LISPRO SLIDING SCALE 100 UNITS/ML VIAL SUBQ PRN ×4 (06:53→20:53)
[2020-04-30 08:39] LABS: HEMATOCRIT 43.1 % (36-52); HEMOGLOBIN 14.3 g/dL (12.0-18.0); MEAN CORPUSCULAR HEMOGLOBIN 31 pg (27-31); MEAN CORPUSCULAR HGB CONC 33 g/dL (33-37); MEAN CORPUSCULAR VOLUME 94.8 fL (80-94); PLATELET COUNT (AUTO) 246 K/uL (140-450); RED BLOOD CELL COUNT(AUTO) 4.55 MIL/uL (4.20-6.10); RED CELL DISTRIBUTION WIDTH 16.1 % (11.6-13.7); WHITE BLOOD COUNT (AUTO) 22.9 K/uL (4.8-10.8)
[2020-04-30 08:53] LABS: ANION GAP 17.3 (8-16); CARBON DIOXIDE 20.1 mmol/L (21-32); CHLORIDE 111 mmol/L (98-107); CREATININE 1.2 mg/dL (0.6-1.3); GLUCOSE 180 mg/dL (74-106); POTASSIUM 4.4 mmol/L (3.5-5.1); SODIUM SERUM 144 mmol/L (136-145); UREA NITROGEN, BLOOD 47 mg/dL (7-18)
[2020-04-30] MEDS: DIGOXIN 0.125 MG TAB PO SCH (09:04)
[2020-04-30] MEDS: METOPROLOL 25 MG TAB PO SCH ×2 (09:04→20:41)
[2020-04-30] MEDS: ZINC SULF 220 MG CAP PO SCH (09:05)
[2020-04-30] MEDS: ASCORBIC ACID 500 MG TAB PO SCH (09:05)
--- NOTE | 2020-04-30 09:14 | NUR ---
SCHEDULED MEDICATION GIVEN VIA NG TUBE, NO RESIDUAL NOTED, PATIENT TOLERATED THE FEEDING WELL. HUNG NEW BAG OF D5 SINCE ONLY 500ML AVAILABLE. PATIENT IS AAOX1, WITH CLEAR SPEECH. BILATERAL WRIST RESTRAINT IN PLACE, NO INJURY NOTED. JIANG CATHETER IN PLACE, DRAIN FREELY BY GRAVITY. SAFETY MEASURES IN PLACE, WILL CONTINUE TO MONITOR.
[2020-04-30 10:08] LABS: LYMPHOCYTES % (MANUAL) 3 % (20-46); MONOCYTES % (MANUAL) 4 % (5-12)
--- NOTE | 2020-04-30 11:08 | NUR ---
CHECKED THE PATIENT. PATIENT ASLEEP, AWAKABLE BY VOICE. O2 SAT 96% IN RA. HR 92. NG TUBE FEEDING INDICATED. IVF INFUSING WELL. NO ACUTE DISTRESS NOTED. WILL CONTINUE TO MONITOR.
--- NOTE | 2020-04-30 11:59 | NUR ---
2 UNITS OF HUMALOG GIVEN FOR BLOOD GLUCOSE LEVEL 185. EDUCATION PROVIDED, PATIENT RESTING IN WITH NO ACUTE RESPIRATORY DISTRESS IN RA. WILL CONTINUE TO MONITOR.
[2020-04-30 12:00] VITALS: BP 138/66
--- NOTE | 2020-04-30 12:26 | NUR ---
CARDIZEM GIVEN VIA NG TUBE. FLUSH PROTOCOL FOLLOWED. CHANGED PATIENT TO LEFT LATERAL POSITION HIGH REDDY'S. RELEASED RESTRAINT FOR 15MINS. PATIENT TOLERATED FEEDING WELL. NO ACUTE DISTRESS NOTED. WILL CONTINUE TO MONITOR.
--- NOTE | 2020-04-30 13:02 | NUR ---
CHECKED THE PATIENT. O2 SAT 95% IN RA, HR 86. NO ACUTE DISTRESS NOTED. WILL CONTINUE TO MONITOR.
--- NOTE | 2020-04-30 15:27 | NUR ---
CHECKED THE PATIENT. NO ACUTE DISTRESS NOTED, REPOSED THE PATIENT. WILL CONTINUE TO MONITOR.
[2020-04-30 16:00] VITALS: BP 136/68
--- NOTE | 2020-04-30 16:12 | NUR ---
04/30/20 RD FOLLOW UP COMPLETED. PLEASE REFER TO NUTRITION ASSESSMENT UNDER CARE ACTIVITY FOR ESTIMATED NUTRITIONAL NEEDS. 1. CONTINUE GLUCERNA 1.2 @ 60 ML/HR. START AT 10 ML/HR, INCREASE BY 10 Q6H. THIS WILL PROVIDE 1440 ML OF VOLUME, 1159 ML OF WATER, 1728 KCAL AND 86 GM OF PROTEIN. MEETING 100% OF KCAL AND PROTEIN NEEDS. 2. RECOMMEND FLUSH OF [address] TO FOLLOW-UP 2-3 DAYS, HIGH RISK JOSE HERRERA RD
--- NOTE | 2020-04-30 17:14 | NUR ---
4 UNITS OF HUMALOG GIVEN FOR BLOOD GLUCOSE LEVEL 235. TOLERATED THE PROCEDURE WELL. PATIENT IN HIGH REDDY POSITION. O2 SAT 95% IN RA. NO ACUTE DISTRESS NOTED. WILL CONTINUE TO MONITOR.
--- NOTE | 2020-04-30 18:27 | NUR ---
CARDIZEM GIVEN VIA NG TUBE, PATIENT TOLERATED WELL. HR 83, O2 95% IN RA. SAFETY MEASURES IN PLACE, WILL CONTINUE TO MONITOR.
--- NOTE | 2020-04-30 19:38 | NUR ---
ENDORSED PATIENT TO SEWER LINE REPAIRER RN FOR CONTINUITY OF CARE, PATIENT IN STABLE CONDITION.
--- NOTE | 2020-04-30 19:39 | NUR ---
RECEIVED ENDORSEMENT FROM AM SHIFT RN. PT IN BED, AOX1, NO SOB, ON ROOM AIR, WITH BILATERAL SOFT WRIST RESTRAIN FOR PULLING OF TUBES, ON NGT WITH CONTINUOUS FEEDING, MANDI PICC W/ IVF INFUSING, SAFETY MEASURES IN PLACE, PLAN OF CARE DISCUSSED, CALL LIGHT WITHIN REACH.
[2020-04-30 20:00] VITALS: BP 90/56
[2020-04-30] MEDS: ENOXAPARIN 40 MG/0.4 ML SYR SUBQ SCH (20:35)
--- NOTE | 2020-04-30 21:14 | NUR ---
PT AWAKE, ON FOWLERS POSITION, DUE MEDS GIVEN ORDERED, TOLERATED WELL, CALL LIGHT WITHIN REACH.
--- NOTE | 2020-04-30 23:46 | NUR ---
HOD ELEVATED, CHECKED NGT PLACEMENT BY AUSCULTATION, IN PLACE, DUE MEDS GIVEN ORDERED, TOLERATED WELL. CALL LIGHT WITHIN REACH.
[2020-05-01] VITALS: BP 131/87
[2020-05-01] MEDS: Z-GUARD PASTE TP SCH ×2 (00:20→13:00)
[2020-05-01 04:00] VITALS: BP 114/79
[2020-05-01] MEDS: DILTIAZEM 30 MG TAB PO SCH ×4 (05:42→23:00)
--- NOTE | 2020-05-01 05:42 | NUR ---
TYLENOL TAB GIVEN FOR TEMP OF 100.5. COOLING MEASURES IN PLACE.
[2020-05-01] MEDS: DEXTROSE 5% 1,000 ML IV SCH ×3 (05:44→22:27)
[2020-05-01] MEDS: BLOOD GLUCOSE MONITORING 1 DEV DEV FS SCH ×4 (06:43→20:52)
[2020-05-01] MEDS: INSULIN LISPRO SLIDING SCALE 100 UNITS/ML VIAL SUBQ PRN ×4 (06:44→20:56)
--- NOTE | 2020-05-01 06:45 | NUR ---
BLOOD SUGAR 322. 8 U HUMALOG SQ GIVEN PER SLIDING SCALE. NO SOB.
[2020-05-01 06:50] LABS: HEMOGLOBIN 15.1 g/dL (12.0-18.0); MEAN CORPUSCULAR HEMOGLOBIN 30 pg (27-31); MEAN CORPUSCULAR HGB CONC 33 g/dL (33-37); MEAN CORPUSCULAR VOLUME 92.2 fL (80-94); PLATELET COUNT (AUTO) 284 K/uL (140-450); RED BLOOD CELL COUNT(AUTO) 4.99 MIL/uL (4.20-6.10); RED CELL DISTRIBUTION WIDTH 15.8 % (11.6-13.7)
--- NOTE | 2020-05-01 07:20 | NUR ---
PT STABLE, ENDORSED TO AM SHIFT RN FOR CONTINUITY OF CARE.
[2020-05-01 07:30] LABS: ALBUMIN 2.1 g/dL (3.4-5.0); ANION GAP 20.4 (8-16); ASPARTATE AMINOTRANSFERASE 84 U/L (15-37); CARBON DIOXIDE 17.9 mmol/L (21-32); CHLORIDE 101 mmol/L (98-107); CREATININE 1.5 mg/dL (0.6-1.3); GLUCOSE 329 mg/dL (74-106); MAGNESIUM 2.4 mg/dL (1.8-2.4); PHOSPHORUS 2.9 mg/dL (2.5-4.9); POTASSIUM 4.3 mmol/L (3.5-5.1); SODIUM SERUM 135 mmol/L (136-145); TOTAL BILIRUBIN 0.9 mg/dL (0.0-1.0); UREA NITROGEN, BLOOD 54 mg/dL (7-18)
[2020-05-01 08:00] VITALS: BP 106/86
[2020-05-01] MEDS: ASCORBIC ACID 500 MG TAB PO SCH (11:50)
[2020-05-01] MEDS: ZINC SULF 220 MG CAP PO SCH (11:50)
[2020-05-01] MEDS: METOPROLOL 25 MG TAB PO SCH ×2 (11:51→20:43)
[2020-05-01] MEDS: DIGOXIN 0.125 MG TAB PO SCH (11:51)
[2020-05-01] MEDS: ENOXAPARIN 40 MG/0.4 ML SYR SUBQ SCH ×2 (11:52→20:46)
[2020-05-01 12:00] VITALS: BP 119/81
--- NOTE | 2020-05-01 12:11 | NUR ---
ADMINISTERED PRESCRIBED MEDS PER MD ORDER. PATIENT TOLERATED WELL. MEDICATION EDUCATION PROVIDED. PATIENT VERBALIZED UNDERSTANDING. SAFETY MEASURES IN PLACE. WILL CONT TO MONITOR.
[2020-05-01 12:13] LABS: WHITE BLOOD COUNT (AUTO) 31.3 K/uL (4.8-10.8)
[2020-05-01 12:14] LABS: LYMPHOCYTES % (MANUAL) 2 % (20-46); MONOCYTES % (MANUAL) 2 % (5-12)
--- NOTE | 2020-05-01 12:21 | NUR ---
ABG DRAWN ON LB WITHOUT INCIDENT AND RESULTS GIVEN TO AND PT WAS PLACED ON 4LNC
[2020-05-01 13:22] LABS: LACTATE DEHYDROGENASE 598 U/L (85-227)
[2020-05-01] MEDS ORDERED: MIDAZOLAM 5 MG/5 ML VIAL ONE (14:54)
[2020-05-01] MEDS ORDERED: fentaNYL citrate 0.05 MG/ML VIAL ONE (14:54)
[2020-05-01] MEDS: SODIUM BICARBONATE 8.4% 150 MEQ in DEXTROSE 5% 1,000 ML IV SCH (15:48)
--- NOTE | 2020-05-01 15:49 | NUR ---
ADMINISTERED PRESCRIBED MEDS PER MD ORDER. PATIENT TOLERATED WELL. SAFETY MEASURES IN PLACE. WILL CONT TO MONITOR
[2020-05-01 16:00] VITALS: BP 136/82
--- NOTE | 2020-05-01 18:19 | NUR ---
ADMINISTERED PRESCRIBED MEDS PER MD ORDER. PATIENT TOLERATED WELL. SAFETY MEASURES IN PLACE. WILL CONT TO MONITOR.
--- NOTE | 2020-05-01 19:30 | NUR ---
RECEIVED BEDSIDE ENDORSEMENT FROM AM SHIFT RN. PT IS ALERT, ABLE TO MAKE NEEDS KNOWN, NO SOB, ON 15L NRB, ON JAMES SOFT WRIST RESTRAIN FOR PULLING OF TUBES, NTG IN PLACE, SAFETY MEASURES IN PLACE, PLAN OF CARE DISCUSSED, ISOLATION PRECAUTION OBSERVED, CALL LIGHT WITHIN REACH.
[2020-05-01 20:00] VITALS: BP 112/60
[2020-05-01] MEDS: PIPERACILLIN/TAZOBACTAM 2.25 GM in DEXTROSE 5% 50 ML IV SCH ×2 (21:00→22:25)
--- NOTE | 2020-05-01 22:35 | NUR ---
GAVE ZOSYN IVPB AT 2225. THE AM NURSE DIDN'T ADMINISTER THE 1300 SCHEDULE, SO WHEN I GIVE MY SCHEDULE AT NIGHT, IT APPEARS THAT THE 2100 IS NOT GIVEN, BUT JUST TO CLARIFY THAT I GAVE THE 2100 SCHEDULE AT 2225, I WAS SO BUSY.
[2020-05-02] VITALS: BP_SYST 101; BP_SYST 83; BP_DIAS 37; BP_DIAS 55
--- NOTE | 2020-05-02 00:06 | NUR ---
INFORMED MUSICAL THERAPIST DR. STANLEY OF PT'S HR FLUCTUATION FROM 130'S - 160'S, ALSO TOLD HER ABOUT THE CARDIZEM THAT I GAVE, BUT STILL THE HR IS FLUCTUATING HIGH UP TO 160'S AND THE BP IS LOW 96/51. SAID TO CONSULT CARDIO. NOTED.
--- NOTE | 2020-05-02 00:15 | NUR ---
PAGED DR. LO, AWAITING CALL BACK. MONITORED PT CLOSELY AND FREQUENTLY. CALL LIGHT WITHIN REACH.
[2020-05-02] MEDS: Z-GUARD PASTE TP SCH (00:35)
[2020-05-02] MEDS: SODIUM BICARBONATE 8.4% 150 MEQ in DEXTROSE 5% 1,000 ML IV SCH (02:03)
--- NOTE | 2020-05-02 02:08 | NUR ---
PT ASLEEP, O2 SAT ON
--- NOTE | 2020-05-02 02:15 | NUR ---
CHECKED PT, O2 SAT IS 82%, RT CAME IN, E.R. DR. MART CHECKED THE PT AT 0230, HE SAID TO GIVE HI FLOW AND CONTINUE TO CLOSELY MONITOR PT. INFORMED AT 02:50, EMBEDDED SYSTEMS SOFTWARE ENGINEER DR. STANLEY THAT WE ARE GOING TO PUT PT ON HI FLOW, RT SPOKE TO DR. STANLEY RE: PT STATUS ON RESPIRATION.
--- NOTE | 2020-05-02 03:00 | NUR ---
ER DOCTOR CAME TO BEDSIDE TO ASSESS PT. RECOMMENDED TO START HFNC AT THIS TIME. DR. STANLEY WAS UPDATED. HFNC STARTED.
[2020-05-02 04:00] VITALS: BP 83/37
[2020-05-02] MEDS: PIPERACILLIN/TAZOBACTAM 2.25 GM in DEXTROSE 5% 50 ML IV SCH (04:16)
--- NOTE | 2020-05-02 05:00 | NUR ---
E.R. DOCTOR ASKED FOR UPDATE, I TOLD HIM BP IS 79/50 HR 131, O2 SAT AT 82% ON HFNC + 15L NRB. INFORMED DR. STANLEY ON PT'S BP AND HR, SHE SAID TO GIVE 1L NS BOLUS + LEVOPHED AND PT NEEDS TO BE ON ICU. INFORMED THE COMPUTATIONAL THEORY SCIENTIST WELL THAT PT NEEDS TO BE ON ICU PER . I GAVE THE NS BOLUS AND THE LEVOPHED ORDERED. CALLED THE SON AT 0520, INFORMED HIM OF PT'S CONDITION, SON GAVE PERMISSION TO INTUBATE THE PT. INFORMED DR. STANLEY THAT THE SON IS OK WITH INTUBATION. PT IS FULL CODE, INTUBATED PT, SUCCESS. 3MINS AFTER INTUBATION, RT IS STILL AT BEDSIDE, PT CODED, CALLED THE SON, INFORMED HIM THAT THEY ARE CURRENTLY DOING CPR, DR. MART SPOKE TO THE SON AND EXPLAIN PT'S CONDITION, SON DECIDED TO STOP THE CPR. ORDERED TO STOP CPR. PT PRONOUNCED BY AT 0547. FAMILY AWARE.
[2020-05-02] MEDS ORDERED: NOREPINEPHRINE 4 MG/4 ML VIAL IV ONE (05:06)
[2020-05-02] MEDS ORDERED: NACL 0.9% 1,000 ML IV ONE (05:10)
[2020-05-02] MEDS ORDERED: ETOMIDATE 20 MG/10 ML VIAL IVP ONE (05:15)
[2020-05-02] MEDS ORDERED: ROCURONIUM 50 MG/5 ML VIAL IV ONE (05:15)
[2020-05-02] MEDS ORDERED: fentaNYL citrate 1 MG in NACL 0.9% 80 ML IV PRN (05:15)
[2020-05-02] MEDS ORDERED: NOREPINEPHRINE 8 MG in DEXTROSE 5% 250 ML IV PRN (05:35)
--- NOTE | 2020-05-02 06:12 | NUR ---
CALLED [facility], SPOKE TO ABDIRIZAK Jaime. GAVE ME RELEASE NO. [phone]. ALSO REPORTED TO [facility].
--- NOTE | 2020-05-02 07:40 | NUR ---
ENDORSED PT TO AM SHIFT RN.
--- NOTE | 2020-05-02 07:45 | NUR ---
RECEIVED REPORT FROM CHIEF PETROLEUM ENGINEER NURSE, BODY IS WRAPPED IN A BAG SEALED, WILL FOLLOW UP WITH FAMILY FOR THE MORTUARY AND AWAITING RUBBER PRODUCTION MACHINE OPERATOR'S CALL BACK.
--- NOTE | 2020-05-02 09:42 | NUR ---
CALLED THE PT'S SON SOSA ARMANDO AT [phone] AND SON SAID THAT HE CALLED [facility] BUT DID NOT INFORM OF THE ETA TO TELEPHONE DIRECTORY DELIVERER BODY, WILL FOLLOW UP WITH [facility].
--- NOTE | 2020-05-02 09:53 | NUR ---
[phone] AND SPOKE TO TEGAN, AND SHE SAID THAT THEY ARE JUST FINISHING THE PAPERWORK AND WILL BE CALLING BACK FOR THE ETA TO BEAD SUPERVISOR THE BODY, INFORMED [facility] THAT WE CAN ONLY HOLD THE BODY FOR 4 HOURS, AWAITING CALL BACK.
--- NOTE | 2020-05-02 12:43 | NUR ---
MADE A FOLLOW UP CALL FOR THE CAN OPERATOR AND WAS TOLD THAT THEY ARE BUSY AND HAVE TO WAIT FOR THE CALL BACK, MILENA DE DIOS INFORMED.
--- NOTE | 2020-05-02 12:45 | NUR ---
INFORMED [facility]SM[facility] REGARDING THE FOLLOW UP CALL TO THE QUALITY ASSOCIATE'S OFFICE.
--- NOTE | 2020-05-02 13:56 | NUR ---
CALLED AND MADE A FOLLOW UP CALL WITH THE ACTIVITIES DIRECTOR'S OFFICE NOW AND THEY SAID TO STILL HAVE TO WAIT FOR A CALL BACK. INFORMED MILENA DE DIOS.
--- NOTE | 2020-05-02 17:40 | NUR ---
TREASURY MANAGEMENT SALES CONSULTANT SPOKE TO DIRECTOR OF SURGERY, MARTIN RIVERA AND SHES RELEASING THE BODY.
--- NOTE | 2020-05-02 18:07 | NUR ---
CALLED [facility] AND SPOKE TO VERNON AND SAID THAT HE WILL CALL AFTER 10MINS TO GIVE THE ETA, AWAITING FOR CALL BACK.
--- NOTE | 2020-05-02 18:46 | NUR ---
CALLED [facility] AT [phone] AND WAS JUST PUT ON HOLD FOR 15MINS AND LINE WAS CUT OFF.
== END 2020-05-02 05:47 | DRG 177 ==
LOC: MED 22:12 → MTU 04-21 04:16 → MMU 04-24 00:29
PROVIDERS: ADMIT Emergency Medicine; ATTEND Emergency Medicine
PROC: 5A09357 Assistance with Respiratory Ventilation, Less than 24 Consecutive Hours, Continuous Positive Airway Pressure (ICD-10-PCS; 2020-04-21)
PROC: XW13325 Transfusion of Convalescent Plasma (Nonautologous) into Peripheral Vein, Percutaneous Approach, New Technology Group 5 (ICD-10-PCS; 2020-04-22)
PROC: 02HV33Z Insertion of Infusion Device into Superior Vena Cava, Percutaneous Approach (ICD-10-PCS; principal; 2020-04-28)
PROC: 0BH17EZ Insertion of Endotracheal Airway into Trachea, Via Natural or Artificial Opening (ICD-10-PCS; 2020-05-02)
DX: U07.1 COVID-19 (principal); J96.01 Acute respiratory failure with hypoxia; I50.43 Acute on chronic combined systolic (congestive) and diastolic (congestive) heart failure; J69.0 Pneumonitis due to inhalation of food and vomit; I47.1 Supraventricular tachycardia; N17.9 Acute kidney failure, unspecified; G93.40 Encephalopathy, unspecified; I48.20 Chronic atrial fibrillation, unspecified; I13.0 Hypertensive heart and chronic kidney disease with heart failure and stage 1 through stage 4 chronic kidney disease, or unspecified chronic kidney disease; I48.92 Unspecified atrial flutter; E87.1 Hypo-osmolality and hyponatremia; E11.22 Type 2 diabetes mellitus with diabetic chronic kidney disease; E78.00 Pure hypercholesterolemia, unspecified; E87.5 Hyperkalemia; E78.5 Hyperlipidemia, unspecified; F03.90 Unspecified dementia, unspecified severity, without behavioral disturbance, psychotic disturbance, mood disturbance, and anxiety; N18.9 Chronic kidney disease, unspecified; Z91.19 Patient's noncompliance with other medical treatment and regimen; Z79.01 Long term (current) use of anticoagulants
CPT/HCPCS: 36415; 36600; 71045; 78582; 80048; 80053; 80162; 81001; 82550; 82553; 82728; 82803; 82948; 83036; 83605; 83615; 83735; 83880; 84100; 84436; 84439; 84443; 84479; 84484; 85025; 85379; 85384; 85610; 85651; 85730; 86140; 86900; 86901; 87040; 87081; 87086; 87804; 92610; 93005; 96365; 96367; 96375; 99291; J0456; J0696; J1100; J1160; J1644; J1650; J1815; J2060; J2250; J2270; J2543; J3010; J3490; J7060; P9017; U0003